=== PATIENT | male | born 1960 | race Caucasian/White ===

== ENCOUNTER 2018-12-01 09:36 | Outpatient (REF) | payer MEDICAID, SELFPAY ==
[2018-12-01 14:04] LABS: COMMENT (LAB VIEW ONLY) 50.91 mg/dL; Microalb ug/mg Crea 13.2 ug/mg Cr
[2018-12-01 18:49] LABS: HCT 46.4 % (40.0-50.0); Mean Corp. HGB Concentration 34.5 g/dL (32.0-36.0); Mean Corpuscular Hemoglobin 32.3 pg (27.0-33.0); Mean Corpuscular Volume 93.5 fL (80-95); Platelet Count 131 x1000/uL (130-400); RBC 4.96 m/cumm (4.50-6.00); RBC Distribution Width 13.6 % (11.8-14.1); White Blood Cell Count 8.42 k/cumm (4.4-10.8)
[2018-12-01 19:01] LABS: ALT 32 U/L (12-78); AST 24 U/L (15-37); Albumin 4.2 g/dL (3.4-5.0); Alkaline Phosphatase 60 U/L (46-116); Anion Gap 9.5 mmol/L (3-11); BUN 19 mg/dL (7-18); Bilirubin, Total 0.5 mg/dL (0.2-1.0); CO2 29.5 mmol/L (21.0-32.0); CREATININE 1.16 mg/dL (0.70-1.30); Calcium 9.5 mg/dL (8.5-10.1); Chloride 102 mmol/L (98-107); Cholesterol 112 mg/dL (50-200); Glucose 114 mg/dL (70-100); HDL Cholesterol 40 mg/dL (40-60); LDL CHOLESTEROL 56 mg/dL (<100); Potassium 4.1 mmol/L (3.5-5.1); Sodium 141 mmol/L (136-145); Triglyceride 85 mg/dL (30-150)
== END 2018-12-01 09:56 ==
LOC: NCHCN 09:36
PROVIDERS: PCP Family Medicine; Visit Provider Family Medicine
DX: E11.65 Type 2 diabetes mellitus with hyperglycemia (principal); E78.5 Hyperlipidemia, unspecified; F10.10 Alcohol abuse, uncomplicated
CPT/HCPCS: 80053; 80061; 83721; 85027; 82043; 82570

== ENCOUNTER 2019-04-10 00:31 | Outpatient (CLI) | payer MEDICAID, SELFPAY ==
--- NOTE | 2019-04-10 13:45 | DI.CTLCSR_ITS ---
SYMPTOM/DIAGNOSIS: CURRENT TOBACCO USE F17.200 CT CHEST: CT scan of the chest was performed according to the Lung Cancer screening protocol. The thoracic aorta is of normal caliber. Heart size is within normal limits. No significant pericardial effusion is seen. Coronary artery calcifications are present. No significant adenopathy is appreciated. No pleural effusion or pneumothorax is identified. No pulmonary nodules are seen. The tracheobronchial tree is unremarkable. No focal consolidating infiltrates are present. No acute osseous abnormality is identified. IMPRESSION: No pulmonary nodules. Category 1. Lung-RAD Category: Lung RADS Category 1- Negative
== END 2019-04-10 00:51 ==
PROVIDERS: PCP Family Medicine; Visit Provider Family Medicine
DX: Z12.2 Encounter for screening for malignant neoplasm of respiratory organs (principal); F17.200 Nicotine dependence, unspecified, uncomplicated
CPT/HCPCS: G0297

== ENCOUNTER 2019-12-21 00:33 | Outpatient (CLI) | payer MEDICAID, SELFPAY ==
--- NOTE | 2019-12-21 09:15 | DI.NM_ITS ---
APPROVED REPORT Exam: Exercise Treadmill Patient Location: Out-Patient Room/Bed: Stress Nurse: Graciela Blank RN BMI: 38.39 Baseline Rhythm: Sinus Rhythm Indications: Patient reports intermittent left sided chest pain (sharp to aching) and SOB every day f or the last ???couple of months???. Patient unsure if he has any family history of CAD. Medical History Cardiac Medications: Lipitor, Hydrochlorothiazide, Metoprolol Tartrate, Lisinopril, Aspirin. Allergies: Amoxicillin Cardiac Risk Factors: HTN, Hyperlipidemia, PVD, Diabetes (insulin), COPD Previous Cardiac Procedures: None Pretest Chest Pain Characteristics: Patient reports left sided ???hurts??? chest pain rated 1/10 this morning. Exercise History: Sedentary Physical Disabilities: None Lung Sounds: Clear to auscultation Heart Sounds: Regular Stress Test Details Test: Exercise stress testing was performed using a Bill protocol. Nuclear Acquisition: Rest Tc-99m/Stress Tc-99m 1 day Rest Isotope: Tc-99m Sestamibi. Dose: 12.3 Date: 12/21/2019 Injection Time: 0930 Stress Isotope: Tc-99m Sestamibi. Dose: 37.6 Date: 12/21/2019 Injection Time: 1105 HR Resting HR Supine: 75 bpm Max Heart Rate (APMHR): 161 bpm Resting HR Standin bpm Target HR (85% APMHR): 136 bpm Max HR Achieved: 141 bpm % of APMHR: 87 HR response to stress: Normal HR response to stress BP Resting BP Supine: 138/90 mmHg Resting BP Standin/88 mmHg Max BP: 162/92 mmHg BP response to stress: Abnormal hypertensive response to stress. ECG Resting ECG: Sinus Rhythm Comment: Q-waves inferiorly Stress ECG: Sinus Tachycardia ST Change: Normal Arrhythmia: None Recovery ECG: Sinus Rhythm Recovery ST Change: Normal Recovery Arrhythmia: None Clinical Reason for Termination: Dyspnea, Fatigue Stress Symptoms: Left sided (mid clavical under breast) chest pain (9/10) and pain of the thenar port ion of left hand (4/10) towards the end of exercise through approximately 6 minutes post exercise. Exercise duration: 7 min9 sec Highest Stage Reached: Stage 3: 3.4 mph at 14% grade. Exercise capacity: 8.81 METs Functional Capacity: Mildly deminished capacity Stress ECG Conclusion 1. Patient exercised for 7 minutes (9 METS). Rate-pressure product was 22,000. 2. The patient developed 9 out of 10 chest pain with exercise. 3. There were no ECG changes consistent with ischemia. Protocol Used: Bill Protocol Stress Test Summary STAGE Time (mins) Speed (mph) Grade (%) HR BP SYMPTOMS METS Supine 75 138/90 Standing 82 146/88 1 3 1.7 10 111 148/92 4.6 2 6 2.5 12 129 156/90 7 3 9 3.4 14 10.2 4 12 4.2 16 12.9 5 15 5.0 18 17.2 1 min recovery 135 162/92 3 min recovery 110 160/84 6 min recovery 103 152/78 9 min recovery 103 148/70 12 min recovery 100 150/68 MPI Conclusion Ejection fraction was 53% with stress. There were no wall motion abnormalities. There was no evidence of ischemia or infarction on the imaging portion of this exam. This represents a normal SPECT imaging test.
== END 2019-12-21 00:53 ==
PROVIDERS: PCP Family Medicine; Visit Provider Family Medicine
DX: R07.89 Other chest pain (principal); R06.02 Shortness of breath; R06.09 Other forms of dyspnea; I10 Essential (primary) hypertension; E78.5 Hyperlipidemia, unspecified
CPT/HCPCS: 78452; 93017

== ENCOUNTER 2019-12-27 17:09 | Outpatient (REF) | payer MEDICAID, SELFPAY ==
[2019-12-27 17:48] LABS: HCT 43.8 % (40.0-50.0); HGB 14.9 g/dL (13.5-17.5); Mean Corpuscular Hemoglobin 32.3 pg (27.0-33.0); Mean Platelet Volume 11.1 fL (8.0-11.0); Platelet Count 139 x1000/uL (130-400); RBC 4.61 m/cumm (4.50-6.00); RBC Distribution Width 13.3 % (11.8-14.1); White Blood Cell Count 6.44 k/cumm (4.4-10.8)
[2019-12-27 18:02] LABS: ALT 44 U/L (16-63); AST 20 U/L (15-37); Alkaline Phosphatase 68 U/L (46-116); Anion Gap 6.4 mmol/L (3-11); BUN 20 mg/dL (7-18); Bilirubin, Total 0.5 mg/dL (0.2-1.0); CO2 31.6 mmol/L (21.0-32.0); CREATININE 1.19 mg/dL (0.70-1.30); Calcium 9.1 mg/dL (8.5-10.1); Chloride 104 mmol/L (98-107); Glucose 116 mg/dL (74-106); Potassium 3.8 mmol/L (3.5-5.1); Sodium 142 mmol/L (136-145); Total Protein 6.8 g/dL (6.4-8.2)
[2019-12-27 18:53] LABS: COMMENT (LAB VIEW ONLY) 85.25 mg/dL
[2019-12-27 19:01] LABS: Hemoglobin A1C 6.9 % (3.8-5.6)
== END 2019-12-27 17:29 ==
LOC: NCHCN 17:09
PROVIDERS: PCP Family Medicine; Visit Provider Family Medicine
DX: I10 Essential (primary) hypertension (principal); R06.09 Other forms of dyspnea; R07.89 Other chest pain; E11.65 Type 2 diabetes mellitus with hyperglycemia
CPT/HCPCS: 80053; 85027; 82043; 82570; 83036

== ENCOUNTER 2020-06-12 18:26 | Outpatient (REF) | payer MEDICAID, SELFPAY ==
[2020-06-12 19:55] LABS: TSH (W/Ref FT4) 2.06 uIU/mL (0.36-3.74)
== END 2020-06-12 18:46 ==
LOC: NCHCN 18:26
PROVIDERS: PCP Family Medicine; Visit Provider Family Medicine
DX: I10 Essential (primary) hypertension (principal); E11.65 Type 2 diabetes mellitus with hyperglycemia; R63.5 Abnormal weight gain
CPT/HCPCS: 84443

== ENCOUNTER 2020-06-26 01:05 | Outpatient (CLI) | payer MEDICAID, SELFPAY ==
--- NOTE | 2020-06-26 07:34 | DI.US_ITS ---
APPROVED REPORT EXAM: Comprehensive 2D, Doppler, and color-flow Echocardiogram Patient Location: Out-Patient [employer] Specialist: Chelle Woodson RDCS (AE) Indications: WELLS, Leg pain Other Information Study Quality: Fair Conclusion Left Ventricle : The left ventricle is normal size. The left ventricular systolic function is normal. The left ventricular ejection fraction is within the normal range. There is normal left ventricular wall thickness. There is normal LV segmental wall motion. The left ventricular diastolic function is normal. LVEF is 50%. Right Ventricle : Right ventricle is grossly normal in size. Right ventricular systolic function is g rossly normal. Atria : The left atrium size is normal. The right atrium size is normal. Valves: There are no hemodynamically significant valvular lesions. Great Vessels : The aortic root is normal in size. The ascending aorta is normal in size. Aortic arch is normal in caliber. IVC is normal in size and collapses >50% with inspiration. Please see remainder of study for further details. Wall motion Left Ventricle The left ventricle is normal size. The left ventricular systolic function is normal. The left ventric ular ejection fraction is within the normal range. There is normal left ventricular wall thickness. T here is normal LV segmental wall motion. The left ventricular diastolic function is normal. There is no ventricular septal defect visualized. LVEF is 50%. Right Ventricle Right ventricle is grossly normal in size. Right ventricular systolic function is grossly normal. Atria The left atrium size is normal. The right atrium size is normal. The interatrial septum is intact wit h no evidence for an atrial septal defect. Aortic Valve The Aortic valve is sclerotic. Aortic valve is trileaflet. There is no aortic valvular stenosis. No a ortic regurgitation is present. Mitral Valve Mild mitral annular calcification. No evidence of mitral valve stenosis. Trace mitral regurgitation. Tricuspid Valve The tricuspid valve is normal in structure. There is no tricuspid valve stenosis. Trace tricuspid reg urgitation. Unable to assess PA pressure. Pulmonic Valve The pulmonary valve is normal in structure. There is no pulmonic valvular stenosis. Trace pulmonic re gurgitation. Great Vessels The aortic root is normal in size. The ascending aorta is normal in size. Aortic arch is normal in ca liber. IVC is normal in size and collapses >50% with inspiration. Pericardium There is no pericardial effusion. 2D Dimensions IVSD d PLAX 1.03 cm M: 0.6-1.2 LV Vol A2C d MOD 96.0 mL LVPW d PLAX 1.03 cm M: 0.6 - 1.2 LV Vol A4C d MOD 128.1 mL LVID d PLAX 4.41 cm M: 4.2 - 5.8 LA vol/ BSA A4C s A-L 18.0 mL/m2 LVDs 3.30 cm M: 2.5 - 4.0 LA Area A4C s MOD 15.57 cm2 Ao Root d 2.50 cm M: 3.1 - 3.7 LV EF A4C MOD 49.1 % RA Area A4C 11.05 cm2 LV EF A2C MOD 49.0 % RA Vol/ BSA A4C s A-L 11.4 mL/m2 LV EF Biplane MOD 49.0 % Ao Asc Diam d 3.34 cm M: 2.6 - 3.4 SV 54.60 mL LV EF Teichholz 49.5 % SV Index 23.27 mL/m2 LVEF (Chaves's) 49.05 % M: 52 - 72 LV Volume 79.38 mL M: 62 - 150 LV Volume Index 33.92 mL/m2 M: 34 - 74 LV Vol Biplane MOD 111.3 mL FS 24.85 % M-Mode TAPSE 2.46 cm (M/F) >1.7 LV Diastology MV E' medial 0.101 (>0.07 m/s) E/A Ratio 0.9 LV E/e MED 5.95 (<14) MV E Vmax 0.61 (0.4-1.3 m/s) MV E' lateral 0.110 (>0.1 m/s) MV A Vmax 0.65 (0.4-1.3 m/s) LV E/e LAT 5.50 (<14) MV E/A Ratio 0.87 MV E/E' medial 5.98 MV E/E' lateral 5.51 Aortic Valve LVOT Area 3.70 cm2 AoV Area Vmax 2.71 cm2 LVOT Vmax 0.79 m/s AoV Area/ BSA (Vmax) 1.15 cm2/m2 LVOT Mean Gary. 0.51 m/s CARMELA Mean Gary. 2.57 cm2 LVOT Peak Grad 2.5 mmHg CARMELA Mean Gary. Index 1.10 cm2/m2 LVOT Mean Grad 1.2 mmHg LVOT VTI 0.184 m LVOT Diam s 2.15 cm AoV Vmax 1.08 m/s Velocity Ratio 0.73 AoV Mean Gary. 0.74 m/s AoV Peak Grad 4.7 mmHg LVOT SV 67.97 mL AoV Mean Grad 2.5 mmHg AoV VTI 0.212 m AoV Area VTI 3.20 cm2 AoV Area/ BSA (VTI) 1.37 cm/m2 Mitral Valve MV DT 192 (160-240 msec) MV PHT 56 msec MV Area PHT 3.95 cm2 Pulmonary Valve PV Vmax 1.04 (0.5-1.5 m/s) RVOT Peak Gr. 1.86 mmHg PV Peak Grad 4.4 mmHg RVOT Mean Gr. 0.90 mmHg PV Mean Grad 2.2 mmHg RVOT VTI 0.156 m PV VTI 0.214 m RVOT Vmax 0.68 m/s
== END 2020-06-26 01:25 ==
PROVIDERS: PCP Family Medicine; Visit Provider Family Medicine
DX: R06.09 Other forms of dyspnea (principal); M79.604 Pain in right leg; M79.605 Pain in left leg
CPT/HCPCS: 93306

== ENCOUNTER 2020-07-08 07:26 | Outpatient (CLI) | payer MEDICAID, SELFPAY ==
[2020-07-09 21:04] LABS: COVID-19 RT-PCR Result NEGATIVE (Negative)
== END 2020-07-08 07:46 ==
PROVIDERS: PCP Family Medicine; Visit Provider Family Medicine
DX: Z01.818 Encounter for other preprocedural examination (principal); Z11.59 Encounter for screening for other viral diseases; J44.9 Chronic obstructive pulmonary disease, unspecified
CPT/HCPCS: U0003

== ENCOUNTER 2020-07-11 03:04 | Outpatient (CLI) | payer MEDICAID, SELFPAY ==
[2020-07-11] MEDS: Albuterol HFA 18 GM 200 PUFF INH IH (09:02)
[2020-07-11] MEDS: Inhaler, Assist Device 1 EACH MC (09:02)
--- NOTE | 2020-07-15 08:53 | W.PFT ---
Date of service: 07/11/20 Time of Service: 08:12 Pulmonary Function Test Result Interpretation Spirometry: Shows no evidence of obstructive airways disease, no bronchodilator response Lung Volumes: No evidence of restriction Diffusion Capacity: Mildly reduced, even when corrected to alveolar volume Airway Pressure: Normal Impression Isolated mild diffusion defect. This constellation of findings can be seen in early, developing interstitial lung disease and and pulmonary hypertension therefore clinical correlation recommended. When the study was compared to previous one from 10/05/2016 there is some decline in diffusion capacity, total lung capacity has increased by 160 cc but this is mostly due to increasing measures of hyperinflation and air trapping. FVC has declined by 320 cc, FEV1 has Increased by 100 cc Clinical Correlation therefore is recommended.
== END 2020-07-11 03:24 ==
PROVIDERS: PCP Family Medicine; Visit Provider Family Medicine
DX: R06.09 Other forms of dyspnea (principal); J44.9 Chronic obstructive pulmonary disease, unspecified; F17.210 Nicotine dependence, cigarettes, uncomplicated
CPT/HCPCS: 94060; 94726; 94729

== ENCOUNTER 2020-09-26 01:17 | Outpatient (CLI) | payer MEDICAID, SELFPAY ==
--- NOTE | 2020-09-26 | DI.CTLCSR_ITS ---
EXAM: CT CHEST LUNG CANCER SCREEN CLINICAL HISTORY: SCREENING FOR LUNG CA, CURRENT SMOKER, F17.200 TECHNIQUE: CT examination of the chest was performed utilizing low-dose lung cancer screening protoc ol. COMPARISON: CT CHEST - LUNG CANCER SCREENING from 12/27/[address] CHEST LUNG CANCER SCREEN from 04/10/2019 FINDINGS: Images obtained through the upper abdomen show unremarkable appearance of visualized portions of the liver and spleen. Incidental note is made of a low-attenuation 3 cm right renal mass, consistent wit h cyst, unchanged in size from examination of December 2017. There is no mediastinal or hilar adenopathy. Mediastinal vascular structures appear intact by noncon trast criteria. Note is made of coronary artery calcification. Tracheobronchial tree appears intact. No pleural effusion or pleural-based mass. The lungs are clear with no significant intrapulmonary nodule identified. IMPRESSION: Negative LDCT of the chest.Lung RADS Cat 1 - Negative: No nodules and definitely benign nodules Continue annual screening with LDCTin 12 months. RADIATION DOSE DELIVERED: LINK-TO-SR Total DLP 96.66mGy.cm Total DLP
--- NOTE | 2020-09-26 | DI.MRI_ITS ---
EXAM: MR LUMBAR SPINE WO CLINICAL HISTORY: CHRONIC LOW BACK PAIN,M54.5,BILAT LEG PAIN,M79.606,? SPINAL STENOSIS. TECHNIQUE: Multiplanar multisequence MRI was performed. COMPARISON: No exams were available for comparison FINDINGS: MR examination of the lumbosacral spine was performed according to the usual protocol. No significant bony signal abnormality seen. There are moderate hypertrophic facet degenerative gillette ges at L4-5 and L5-S1, mild facet degenerative changes noted throughout the remainder of the lumbar r egion. There are no significant findings T12-L1 vertebral level. Conus medullaris appears intact. At L1-2, there is a mild broad-based right paracentral disc herniation, there is mild narrowing of th e right lateral recess. Neural foramina appears well maintained. No definite neural impingement. At L2-3, there is no evidence of disc herniation, neural foraminal stenosis, or central canal spinal stenosis. There is mild narrowing of the AP diameter of the spinal canal. At L3-4, there is a broad-based left lateral disc herniation with narrowing of the left lateral reces s, left neural foramen appears fairly well maintained. There may be impingement left-sided nerve porter ts at this level including the L 4 left-sided nerve root. There is borderline central canal spinal s tenosis. At L4-5, there is a moderate disc bulge without disc herniation. There is borderline central canal sp inal stenosis. At L5-S1, there is no evidence of disc herniation. Neural foramina are well maintained. There is linda rderline central canal spinal stenosis. 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 Left lateral disc herniation at L3-4 with poss ible nerve root impingement. Please see above discussion for findings at individual levels. DATA REPOSITORY:
== END 2020-09-26 01:37 ==
PROVIDERS: PCP Family Medicine; Visit Provider Family Medicine
DX: F17.210 Nicotine dependence, cigarettes, uncomplicated (principal); M51.26 Other intervertebral disc displacement, lumbar region; M79.604 Pain in right leg; M79.605 Pain in left leg; G89.29 Other chronic pain; M54.5 Low back pain
CPT/HCPCS: 71271; 72148

== ENCOUNTER 2020-11-29 02:28 | Outpatient (CLI) | payer MEDICAID, SELFPAY ==
[2020-11-29 10:05] LABS: Source Nasal/Nares
[2020-11-29 15:02] LABS: COVID-19 PCR Negative (Negative)
== END 2020-11-29 02:29 | disposition home or self-care (01) ==
LOC: LBO 02:28
PROVIDERS: Surgery; PCP Family Medicine; Visit Provider Surgery
DX: Z20.822 Contact with and (suspected) exposure to COVID-19 (principal); Z01.818 Encounter for other preprocedural examination
CPT/HCPCS: 87635

== ENCOUNTER 2020-12-02 11:12 | Day surgery (SDC) | payer MEDICAID, SELFPAY ==
--- NOTE | 2020-12-02 07:04 | W.COLOREPORT ---
Date of service: 12/02/20 Time of Service: 12:18 Colonoscopy Report Date of procedure: 12/02/20 Pre-op diagnosis general: Colon Cancer Screening Post-op diagnosis procedure note: other (polyps) Procedure: Colonoscopy with polypectomy Surgeon: Juliet Hedrick Anesthesia Type: General:No Airway (ASA 2/ Ulices Christensen CRNA) Pathology: other (Transverse polyps x3) Complications: None Disposition: same day Indications: The patient is here for Colonoscopy pre-op. He has no family history of colon cancer. He has not had any bowel habit changes. -Discussed colonoscopy bowel prep as well as the procedure. Discussed possible complications of the procedure to include bleeding, pain, perforation, missed small lesion/polyp, sore throat, aspiration and adverse reaction to the medications. Questions were answered to patient?s satisfaction. No guarantees were implied or given Prep: Miralax/Dulcolax Procedure Start Time: 12:18 Procedure End Time: 12:42 Retraction Time: 18 minutes Findings: 3 small polyps removed Procedure Description: After informed consent was obtained the patient was taken to the procedure room and placed in a left decubitous position. Monitors were applied and a time out was done. The patients name, date of , procedure, allergies to medications and metal in their body was reviewed. The patient was then sedated. Once sedated and comfortable a rectal exam was done. External exam was normal. Internal exam revealed a normal sphincter tone and no palpable masses. The prostate felt smooth. The scope was then introduced and retro-flexed. No internal hemorrhoids, polyps or masses were identified on retro-flexion. The scope was then advanced to the cecum without difficulty. The ileocecal vlave and appendiceal orifice were identified. The prep was adequate. The scope was then slowly retracted over 18 minutes back into the rectum. Polyps were removed with cold forceps in the Transverse colon x3. There was no diverticulosis noted. The scope was removed and the patient was woken up and taken back to Same day surgery in stable condition. The patient tolerated the procedure well and there were no immediate complications. Follow up: The patient should follow up in 5 years unless they develop changes in bowel habits or other new gastrointestinal complaints.
--- NOTE | 2020-12-02 07:05 | W.PM.DSUDISC ---
Discharge Plan Disposition Patient Disposition: HOME Condition: Good Discharge Details Reason For Visit: Colonoscopy Attending Provider: Juliet Hedrick Primary Care Provider: Ruby Herron Home Meds and New Rx's Prescriptions: Continued Cosentyx (2 Syringes) 150 mg/mL syringe 300 mg subcut Q4W RF: 0 albuterol sulfate [Proventil HFA] 90 mcg/actuation HFA aerosol inhaler 2 puff inhalation Q6H PRNRF: 0 Spiriva with HandiHaler 18 mcg capsule, w/inhalation device 1 cap inhalation DAILY RF: 0 triamcinolone acetonide 0.1 % cream 1 applic topical DAILY RF: 0 betamethasone valerate 0.1 % cream 1 applic topical DAILY PRNRF: 0 aspirin [Adult Low Dose Aspirin] 81 mg tablet,delayed release (DR/EC) 81 mg PO DAILY RF: 0 atorvastatin [Lipitor] 40 mg tablet 40 mg PO DAILY RF: 0 hydrochlorothiazide 25 mg tablet 25 mg PO DAILY RF: 0 metoprolol tartrate 25 mg tablet 25 mg PO BID RF: 0 lisinopril 40 mg tablet 40 mg PO DAILY RF: 0 metformin 1,000 mg tablet 1,000 mg PO BID RF: 0 Victoza 3-Erik 0.6 mg/0.1 mL (18 mg/3 mL) pen injector 0.8 mg subcut HS RF: 0 Levemir U-100 Insulin 100 unit/mL solution 70 unit subcut QHS RF: 0 esomeprazole magnesium 40 mg capsule,delayed release(DR/EC) 40 mg PO DAILY RF: 0 sertraline 50 mg tablet 50 mg PO DAILY RF: 0 bupropion HCl 150 mg Tablet Extended Release 24 Hr 150 mg PO DAILY RF: 0 Discontinued polyethylene glycol 3350 17 gram/dose powder 238 g PO ONCE Qty: 238 RF: 0 bisacodyl [Dulcolax (bisacodyl)] 5 mg tablet,delayed release (DR/EC) 5 mg PO ONCE Qty: 4 RF: 0 Discharge Instructions Instructions: Colorectal Polyps (DC) Additional Instructions: Findings: polyps x3 Follow up: 5 years for your next colonoscopy Please call if you develop: fevers >101.5 Nausea or Vomiting Abdominal pain that is not transient DAY SURGERY UNIT POST ENDOSCOPY INSTRUCTIONS 1. Because there will be medication in your system for the next 24 hours, you may feel a little sleepy. Your coordination will be affected. Therefore: a. Do not drive or operate dangerous equipment for 24 hours. b. Do not drink alcohol beverages for 24 hours (not even beer). c. Plan to go home and rest for the day. 2. Generally there are no restrictions on your activity after a day or so has gone by, but you may feel a bit fatigued for a few days. 3 After you arrive home you may have a light meal and return to a normal diet as you can tolerate it without feeling sick to your stomach. 4. After surgery, you may feel pain or discomfort. This should be only transient, but if it persists please contact your doctor. 5. If there are any questions regarding the findings of your procedure, please feel free to contact your doctor. 6. If you are unable to contact your doctor with a problem, contact the hospital at [phone]. 7. Continue all your regular medications unless directed otherwise. I understand the above instructions and have no questions. Signature of Patient or Responsible Adult Escort Date/Time Name of Responsible Adult Escort Signature of Nurse Date/Time Activity:: Activity as Tolerated Diet:: As Tolerated Discharge Orders Discharge Orders: Discharge Order (Routine); Ordered 12/02/20 Ordered By: Juliet Hedrick
[2020-12-02 11:26] VITALS: BP 137/82; PULSE 79; RESP 18; TEMP 36.3; O2SAT 98
[2020-12-02] MEDS: Lactated Ringers 1,000 ML 80 ML IV (12:01)
--- NOTE | 2020-12-02 12:30 | BOWEL_PTH ---
PATIENT: Sharmila Zhang LOC: [facility] U#:[id number] AGE/SX: 60/M ROOM: RE12/02/[address]: Juliet Hedrick MD : [id number] BED: DIS: 12/02/2020 SPEC #: [id number] RECD: 12/02/20 17:23 STATUS: DONAVON REQ #: [id number] BRANDO: 12/02/20 12:[address]: Juliet Hedrick DEPT: Surgical Specimen RECD BY: Elvira Evans ENTERED: 12/02/20 17:23 SP TYPE: Bowel OTHR DR: Ruby Herron Tissues: 1 - BIOPSY BOWEL 2 - BIOPSY BOWEL Procedures: GROSS AND MICRO LEVEL 4 Comments: [id number]
[2020-12-02 13:15] VITALS: BP 114/74; PULSE 71; RESP 18; TEMP 36.5; O2SAT 96
== END 2020-12-02 13:37 | disposition home or self-care (01) ==
LOC: SUR 11:12
PROVIDERS: PCP Family Medicine; Visit Provider Surgery
PROC: 0DJD8ZZ Inspection of Lower Intestinal Tract, Via Natural or Artificial Opening Endoscopic (ICD-10-PCS; CPT 45378; principal; 2020-12-02 12:45)
DX: Z12.11 Encounter for screening for malignant neoplasm of colon (principal); D12.2 Benign neoplasm of ascending colon; K21.9 Gastro-esophageal reflux disease without esophagitis; I10 Essential (primary) hypertension; E11.9 Type 2 diabetes mellitus without complications; E78.5 Hyperlipidemia, unspecified; J44.9 Chronic obstructive pulmonary disease, unspecified
CPT/HCPCS: 45380; 88305; J2001; J2704

== ENCOUNTER 2020-12-05 22:52 | Outpatient (REF) | payer MEDICAID, SELFPAY ==
[2020-12-05 19:04] LABS: Folate 9.9 ng/mL (8.6-20.0); Vitamin B12 280 pg/mL (193-986)
[2020-12-09 15:50] LABS: Albumin 61.5 % (55.8-66.1); Total Protein 6.6 g/dL (6.3-8.2)
[2020-12-11 14:00] LABS: Methylmalonic Acid 0.17 nmol/mL (<=0.40)
== END 2020-12-05 22:53 | disposition home or self-care (01) ==
LOC: NCHCN 22:52
PROVIDERS: PCP Family Medicine; Visit Provider Family Medicine
DX: M79.671 Pain in right foot (principal); M79.672 Pain in left foot; Z13.89 Encounter for screening for other disorder
CPT/HCPCS: 80186; 82607; 82746; 84165

== ENCOUNTER 2021-09-15 15:49 | Outpatient (REF) | payer MEDICAID, SELFPAY ==
[2021-09-15 16:28] LABS: COMMENT (LAB VIEW ONLY) 83.45 mg/dL; Microalb ug/mg Crea 7.1 ug/mg Cr
== END 2021-09-15 15:50 | disposition home or self-care (01) ==
LOC: NCHCN 15:49
PROVIDERS: PCP Family Medicine; Visit Provider Family Medicine
DX: E11.9 Type 2 diabetes mellitus without complications (principal)
CPT/HCPCS: 82043; 82570

== ENCOUNTER 2022-02-16 12:26 | Outpatient (REF) | payer MEDICAID, SELFPAY ==
[2022-02-16 16:43] LABS: HCT 47.1 % (40.0-50.0); HGB 15.7 g/dL (13.5-17.5); MCH 32.2 pg (27.0-33.0); MCHC 33.3 % (32.0-36.0); MCV 97 fL (80-95); MPV 11.5 fL (8.0-11.0); Platelet Count 166 10^3/uL (130-400); RBC 4.87 10^6/uL (4.36-5.78); RDW 14.2 % (11.8-14.1); RDW-SD 51.1 fL; WBC 7.75 10^3/uL (4.4-10.8)
[2022-02-16 17:19] LABS: ALT 35 U/L (16-63); AST 25 U/L (15-37); Alkaline Phosphatase 61 U/L (46-116); BUN 17 mg/dL (7-18); Bilirubin, Total 0.5 mg/dL (0.2-1.0); CREATININE 1.1 mg/dL (0.70-1.30); Calcium 8.9 mg/dL (8.5-10.1); Chloride 103 mmol/L (98-107); Glucose 192 mg/dL (74-106); Sodium 142 mmol/L (136-145); TSH (W/Ref FT4) 1.41 uIU/mL (0.36-3.74); Total Protein 6.7 g/dL (6.4-8.2); Vitamin B12 263 pg/mL (193-986)
[2022-02-18 09:43] LABS: IgA 187 mg/dL (85-499); Interpretation (See Note); Tissue Transglutaminase IgA <1.2 U/mL (<4.0)
[2022-02-18 11:22] LABS: HIV-1/2 Ag & Ab Screen Negative (Negative)
== END 2022-02-16 12:27 | disposition home or self-care (01) ==
LOC: NCHCN 12:26
PROVIDERS: PCP Family Medicine; Visit Provider Family Medicine
DX: R63.4 Abnormal weight loss (principal); E11.9 Type 2 diabetes mellitus without complications; I10 Essential (primary) hypertension; E53.8 Deficiency of other specified B group vitamins; Z11.4 Encounter for screening for human immunodeficiency virus [HIV]
CPT/HCPCS: 80053; 82784; 83516; 85027; 87389; 82607; 84443

== ENCOUNTER → 2022-03-02 01:41 | Outpatient (CLI) | payer MEDICAID, SELFPAY ==
--- NOTE | 2022-03-02 09:15 | DI.CT_ITS ---
Exam(s) CT CHEST/ABD/PEL WO EXAM: CT CHEST/ABD/PEL WO CLINICAL HISTORY: RECENT WT LOSS, R63.4 TECHNIQUE: Imaging Protocol: Axial computed tomography images with coronal and sagittal reformatted images were created and reviewed COMPARISON: CT CHEST - LUNG CANCER SCREENING from 12/27/[address] CHEST LUNG CANCER SCREEN from 04/10/[address] CHEST LUNG CANCER SCREEN from 09/26/2020 FINDINGS: CHEST: Tracheobronchial tree: Patent where visualized. Pulmonary parenchyma: No consolidation or dominant measurable mass. Mild centrilobular emphysematous changes are present. Mediastinum and Jacquelin: No dominant adenopathy or fluid collection. The esophagus is unremarkable. Thyroid gland: Unremarkable. Pleura: No effusion or pneumothorax. Heart: The heart is not dilated. Moderate coronary artery calcification is present. No pericardial e ffusion. Aorta: Thoracic aorta non-dilated. Atherosclerosis is present. Lymph nodes: Within normal limits. Bones:Within normal limits for the patient's age. Soft tissues: Unremarkable. ABDOMEN: Liver: Normal density. No measurable mass. Gallbladder and Biliary Tract: No radiodense calculus or dilation. Pancreas: Normal density, no abnormal calcifications or inflammatory process. Spleen: Normal. Adrenals: There is a 0.9 cm round hypodense nodule on the left adrenal gland. This is stable. No fo llow-up is recommended. The right adrenal gland is unremarkable. Kidneys: Normal size, contour and axis. No radiodense stones or obstructive uropathy. There are stabl e bilateral renal cysts. No follow-up is recommended. Abdominal Aorta: Abdominal portion non-dilated. Atherosclerosis is present. Bowel: No obstruction or bowel wall thickening. No evidence of appendicitis. Peritoneal Cavity: No ascites, collection or mesenteric inflammatory response. No free air. Lymph Nodes: Within normal limits. Bones: Within normal limits for the patient's age. Soft Tissues: There are bilateral fat containing inguinal hernia, left greater than right. There is nonspecific skin thickening in the anterior abdominal wall. There is mild infiltration of the surrou nding fat. Cellulitis cannot be excluded. PELVIS: Bladder: There is diffuse thickening of the wall of the urinary bladder. Reproductive Organs: Prostatic calcifications are present. Lymph Nodes: Within normal limits. Bones: Within normal limits for the patient's age. IMPRESSION: 1. Diffuse thickening of the wall of the urinary bladder. Differential considerations include inflam matory/infectious cystitis, bladder outlet obstruction or neoplasm. Please correlate clinically. 2. Mild centrilobular emphysematous changes in the lungs. 3. Coronary artery disease and atherosclerosis. 4. Bilateral fat containing inguinal hernia, left greater than right. RADIATION DOSE DELIVERED: 692.72 mGy.cm Total DLP 692.72 mGy.cm Total DLP DATA REPOSITORY: All CT scans at this facility are submitted to the National Radiology Data Registry (NRDR) Dose Index Registry (DIR) with the [employer] (A[employer]). RADIATION OPTIMIZATION: All CT scans at this facility use at least one of these dose optimization te chniques: automated exposure control; mA and/or kV adjustment per patient size (includes targeted exa ms where dose is matched to clinical indication); or iterative reconstruction.
== END ==
PROVIDERS: PCP Family Medicine; Visit Provider Family Medicine
DX: R63.4 Abnormal weight loss (principal); J43.2 Centrilobular emphysema; D35.02 Benign neoplasm of left adrenal gland; K40.90 Unilateral inguinal hernia, without obstruction or gangrene, not specified as recurrent; N32.89 Other specified disorders of bladder
CPT/HCPCS: 71250; 74176

== ENCOUNTER 2022-03-11 01:52 | Outpatient (CLI) | payer MEDICAID, SELFPAY | END 2022-03-11 01:53 | disposition home or self-care (01) | LOC: LBO 01:52 | PROVIDERS: PCP Family Medicine; Visit Provider Surgery | DX: E11.65 Type 2 diabetes mellitus with hyperglycemia (principal) | CPT/HCPCS: 36415; 83036 ==

== ENCOUNTER 2022-05-19 18:20 | Outpatient (REF) | payer MEDICAID, SELFPAY ==
[2022-05-19 22:58] LABS: PSA, Screening 0.6 ng/mL (<=4.5)
== END 2022-05-19 18:21 | disposition home or self-care (01) ==
LOC: LBN 18:20
PROVIDERS: PCP Family Medicine; Visit Provider Nurse Practitioner Gerontology
DX: N40.1 Benign prostatic hyperplasia with lower urinary tract symptoms (principal); Z12.5 Encounter for screening for malignant neoplasm of prostate
CPT/HCPCS: 84153

== ENCOUNTER 2022-07-29 17:09 | Outpatient (REF) | payer MEDICAID, SELFPAY ==
[2022-07-29 16:43] LABS: COMMENT (LAB VIEW ONLY) 100.58 mg/dL
== END 2022-07-29 17:10 | disposition home or self-care (01) ==
LOC: NCHCN 17:09
PROVIDERS: PCP Family Medicine; Visit Provider Family Medicine
DX: E11.9 Type 2 diabetes mellitus without complications (principal)
CPT/HCPCS: 82043; 82570

== ENCOUNTER 2022-08-21 08:03 | Day surgery (SDC) | payer MEDICAID, SELFPAY ==
--- NOTE | 2022-08-20 20:42 | PDOC.DSDIS_ITS ---
Date of service: 08/21/22 Time of Service: 11:16 Discharge Plan Disposition Patient Disposition: Home Condition: Good Discharge Details Reason For Visit: Left inguinal hernia Attending Provider: Dusty Nixon Primary Care Provider: Ruby Herron Home Meds and New Rx's Prescriptions: New tramadol 100 mg tablet 100 mg PO BID PRNQty: 6 0RF Rx Instructions: take one tablet by mouth every 6 hours as needed for severe pain Continued Cosentyx (2 Syringes) 150 mg/mL syringe 300 mg subcut Q4W Rx Instructions: start 4 wks after last weekly dose;inject [id number] doses each in different thigh/upper arm/abdominal areas tamsulosin [Flomax] 0.4 mg capsule 0.4 mg PO DAILY Qty: 90 1RF albuterol sulfate [Proventil HFA] 90 mcg/actuation HFA aerosol inhaler 2 puff inhalation Q6H PRN Spiriva with HandiHaler 18 mcg capsule, w/inhalation device 1 cap inhalation DAILY Rx Instructions: puncture 1 cap using device; one dose = 2 inhalations triamcinolone acetonide 0.1 % cream 1 applic topical DAILY PRN betamethasone valerate 0.1 % cream 1 applic topical DAILY PRN aspirin [Adult Low Dose Aspirin] 81 mg tablet,delayed release (DR/EC) 81 mg PO DAILY atorvastatin [Lipitor] 40 mg tablet 40 mg PO DAILY hydrochlorothiazide 25 mg tablet 25 mg PO DAILY metoprolol tartrate 25 mg tablet 25 mg PO BID Label Comments: pt. thinks he took it this AM, 12/02/20 metformin 1,000 mg tablet 1,000 mg PO BID sertraline 50 mg tablet 50 mg PO DAILY Label Comments: pt. thinks he took it this AM, 12/02/20, pt. unsure if he is taking sertraline or buproprion Keralyt 3 % gel 1 applic topical DAILY mecobalamin (vitamin B12) 1,000 mcg tablet,chewable 1,000 mcg PO DAILY Levemir U-100 Insulin 100 unit/mL solution 20 unit subcut QHS lisinopril 40 mg tablet 40 mg PO DAILY bupropion HCl 150 mg Tablet Extended Release 24 Hr 150 mg PO DAILY Label Comments: pt. thinks he took it this AM, 12/02/20, 08/21/22, pt states he is unsure if he takes No Action ibuprofen 600 mg Tablet 600 mg PO TID Discharge Instructions Instructions: Inguinal Hernia (DC) Additional Instructions: 1. Resume all of your medications. 2. Okay to use tylenol and ibuprofen over the counter as needed. 3. Use [] as needed for pain. 4. Ice packs and heating pads for your comfort are fine to use. 5. Leave bandage in place for 24 hours, then remove. 6. Shower with warm soapy water. Pat dry. Use a bandaid if needed to protect your clothing. 7. No soaking or tub baths until I see you in the office. 8. No heavy lifting until I see you in the office. 9.Call the office (or go directly to the emergency room after hours) if you notice any of the following: Develop chills (warm to touch), or if you have a thermometer and your temperature is above 101 Difficulty breathing or difficultly swallowing Persistent vomiting Any bleeding ? exceeding one tablespoon 10. Call your physician if the site where your intravenous was started becomes red, swollen, painful, and warm to touch. Referrals: Dusty Nixon MD [ [facility] STAFF PHYSICIAN] - Activity:: no heavy lifting Remove Dressings/Wound Care:: 24 hours Shower/Bathe:: 24 hours Diet:: As Tolerated Discharge Orders Discharge Orders: Discharge Order (Routine); Ordered 08/20/22 Ordered By: Dusty Nixon DS: Diagnosis Discharge Diagnosis (1) Left inguinal hernia: Status: Acute Asessment and Plan: follow up in my office 1-2 weeks for routine post-op visit
--- NOTE | 2022-08-20 20:46 | ROE_ITS ---
Date of service: 08/21/22 Time of Service: 11:16 Operative Note Operative Note DATE OF PROCEDURE: 08/21/22 PRE-OP DIAGNOSIS: Left inguinal hernia POST-OP DIAGNOSIS: other (Direct left inguinal hernia) PROCEDURE: Open left inguinal herniorraphy SURGEON: Dusty Nixon PLATFORM MATERIAL HANDLING SUPERVISOR: Amanda Mitchell Refer to Anesthesia Record ESTIMATED BLOOD LOSS: 50 PATHOLOGY: none sent COMPLICATIONS: None Implants: Large mesh patch Indications: Jan is a 62-year-old male with a chief complaint of a left groin bulge that has become increasingly painful. Procedure Description: I began by confirming the correct site with the patient. Next the patient was induced with general anesthesia, and ultrasound-guided tap block was performed by their service. Surgical site was then prepped and draped in the usual fashion. I began by making an oblique incision over the left inguinal region. I dissected down through the skin to the deep fascia. Next, I incised the fascia along the length of the inguinal canal to the external ring. I then carefully identified the ilioinguinal nerve. Was fairly well involved in some adhesions, and I had concerned about postoperative pain. Therefore, I sharply divided it. Once this was complete, I bluntly dissected the shelving edge of the inguinal ligament down towards the pubic tubercle. Here, I encircled all cord structures with a [place] drain. Next, I began dissecting the specific cord structures. Great care was taken to spare the vas deferens and the blood supply to the testicle. Next, I isolated the hernia sac from the other inguinal structures. I reduced it back to its normal anatomic position. This was a direct inguinal hernia. Next, I buttressed the posterior floor of the inguinal canal with a large mesh patch. I started by fixing it to the pubic tubercle. Next, I used Prolene sutures to affix it to the shelving edge of the inguinal ligament and the conjoined tendon. Laterally I tacked it to the transversalis fascia and reconstructed an internal ring without any strain on the cord structures. Once this was complete, I irrigated the surgical field. It appeared hemostatic. I then closed the anterior portion of the fascia to reconstruct the front wall of the inguinal canal. I did this with interrupted Vicryl stitches. Once again, I irrigated the surgical field and inspected for hemostasis. Finally, I approximated the superficial fascia and the deep layers of the skin with absorbable suture. Skin was closed with absorbable sutures. Bandages were applied, the patient was awakened and transferred to the recovery unit.
[2022-08-21] VITALS (7 sets, daily range): BP systolic 99–129; BP diastolic 58–88; PULSE 52–66; RESP 16–18; TEMP 36.1–36.6; O2SAT 97–100; BMI 29.2
--- NOTE | 2022-08-21 07:53 | ANES.PREOP_ITS ---
General Info Date of Service Date Performed: 08/21/22 Height: 5 ft 8 in Weight: 87.09 kg Body Mass Index (BMI): 29.2 Surgical Procedure: Operation Date: 08/21/22 09:10 Proposed Procedure Side Surgeon p Herniorrhaphy Inguinal w/Mesh Left Dusty Nixon MD Meds Allergies and Home Medications Allergies Allergy/AdvReac Type Severity Reaction Status Date / Time ampicillin Allergy Severe rash Verified 08/21/22 08:24 amoxicillin Allergy Mild unknown Verified 08/21/22 08:24 some kind of cillin Allergy Uncoded 08/21/22 08:24 Home Medication Medication Instructions Recorded albuterol sulfate 90 mcg/actuation 2 puff inhalation Q6H PRN 10/10/20 aerosol inhaler (Proventil HFA) aspirin 81 mg tablet,delayed 81 mg PO DAILY 10/10/20 release (Adult Low Dose Aspirin) atorvastatin 40 mg tablet (Lipitor) 40 mg PO DAILY 10/10/20 betamethasone valerate 0.1 % 1 applic topical DAILY PRN 10/10/20 topical cream hydrochlorothiazide 25 mg tablet 25 mg PO DAILY 10/10/20 metformin 1,000 mg tablet 1,000 mg PO BID 10/10/20 metoprolol tartrate 25 mg tablet 25 mg PO BID 10/10/20 tiotropium bromide 18 mcg capsule 1 cap inhalation DAILY 10/10/20 with inhalation device (Spiriva with HandiHaler) triamcinolone acetonide 0.1 % 1 applic topical DAILY PRN 10/10/20 topical cream secukinumab 150 mg/mL subcutaneous 300 mg subcut Q4W 11/22/20 syringe (Cosentyx 300 mg/2 Syringes () sertraline 50 mg tablet 50 mg PO DAILY 11/22/20 bupropion HCl 150 mg 24 hr tablet, 150 mg PO DAILY 11/28/20 extended release salicylic acid 3 % topical gel 1 applic topical DAILY 02/23/22 (Keralyt) insulin detemir U-100 100 unit/mL 20 unit subcut QHS 03/04/22 subcutaneous solution (Levemir U-100 Insulin) mecobalamin (vitamin B12) 1,000 1,000 mcg PO DAILY 03/04/22 mcg chewable tablet tamsulosin 0.4 mg capsule (Flomax) 0.4 mg PO DAILY #90 caps 05/19/22 lisinopril 40 mg tablet 40 mg PO DAILY 08/05/22 ibuprofen 600 mg tablet 600 mg PO TID 08/21/22 Current Visit Medications: Current Medications Generic Name Dose Route Start Last Admin Trade Name Maurizio PRN Reason Stop Dose Admin Acetaminophen 1,000 mg 08/21/22 06:00 Acetaminophen 500 Mg Tab PO 08/21/22 23:59 PREOP YOANDY Gabapentin 600 mg 08/21/22 06:00 Gabapentin 300 Mg Cap PO 08/21/22 23:59 PREOP YOANDY Ringer's Solution 1,000 mls @ 80 mls/hr 08/21/22 06:00 IV 08/21/22 23:59 INFUSION YOANDY Cefazolin Sodium/Dextrose 2 gm in 50 mls @ 100 mls/hr 08/21/22 06:00 Ancef Duplex IVPB 08/21/22 23:59 PREOP [facility] Ondansetron HCl 8 mg/ Sodium 54 mls @ 200 mls/hr 08/20/22 20:48 Chloride IVPB Q6H PRN PRN IV Miscellaneous Supplies 1 each 08/21/22 06:00 Iv Access IV 08/21/22 23:59 DIRECTED [facility] Morphine Sulfate 4 mg 08/20/22 20:48 Morphine 4 Mg/Ml Syr IVP Q1H PRN PRN Sodium Chloride 0 ml 08/21/22 06:00 Normal Saline Flush 10 Ml Syr IV 08/21/22 23:59 PRN PRN Sodium Chloride 0 ml 08/21/22 06:00 Normal Saline 10 Ml Vial IJ 08/21/22 23:59 DIRECTED PRN Sterile Water 0 ml 08/21/22 06:00 Water,Injection,Sterile 10 Ml Vial IJ 08/21/22 23:59 DIRECTED PRN Tramadol HCl 100 mg 08/20/22 20:48 Tramadol 50 Mg Tab PO Q6H PRN PRN Pain PFSH Active Problems Active Problems: Problem Status Onset Code BPH loc w urin obs/LUTS N40.1 Excessive and redundant skin and subcutaneous tissue L98.7 Chronic diarrhea K52.9 Poorly controlled type 2 diabetes mellitus with autonomic neuropathy E11.43, E11.65 Left inguinal hernia K40.90 Dyspnea on exertion R06.00 Type 2 diabetes mellitus E11.9 Stage 1 mild COPD by GOLD classification J44.9 Tobacco abuse Z72.0 Alcohol abuse, episodic F10.10 Medical History Medical History B12 deficiency Depression GERD (gastroesophageal reflux disease) Hx of chronic arthritis back Hx of emphysema Hx of fracture of finger Left hand Hx of psoriasis Hyperlipidemia Hyperplastic colon polyp Hypertension Left hydrocele Osteoarthritis Psoriasis Stasis dermatitis Tubular adenoma of colon Venous insufficiency Weight loss Surgical History Surgical History History of arthroscopic surgery of elbow Hx of vein stripping left leg Tobacco Smoking/Tobacco Use Status: Current-Occasional Tobacco Type: cigarettes Smoking packs per day: 0.5 Smoking cigarettes per day: 10.0 Alcohol Alcohol Intake: former Year quit: 2019 Substance Use Substance use type: does not use Details: pt. reports smoking 1/2 pack of cigarettes over couple months Vital Signs and Lab Results Lab Results Blood Type / Crossmatch: No Data to Display Complete Blood Count: No Data to Display Complete Metabolic Panel: No Data to Display Liver Function Panel: No Data to Display Coagulation Panel: No Data to Display Cardiac Panel: No Data to Display Arterial Blood Gas: No Data to Display Venous Blood Gas: No Data to Display Pancreas Panel: No Data to Display Thyroid Panel: No Data to Display Infectious Disease: No Data to Display Blood Cultures: No Data to Display Toxicology Panel: No Data to Display Imaging and Studies Imaging and Studies Study information below may be from another EMR and interpreted by another provider. Please see original notes in EMR for more complete details. Stress Test Summary: Patient Name: SONIA FAGAN #: [id number]: ESTHELA Ordering Provider: Rocio Kan M.D. : ZAC Myles Primary Care Provider: Rocio Kan M.D.Date of Exam: 12/21/19ex: M Admission Date: 12/21/19 : 1960 Age: 59 Exam(s) a NM:NM MPI rest & stress grp APPROVED REPORT Exam: Exercise Treadmill Patient Location: Out-Patient Room/Bed: Stress Nurse: Graciela Blank RN BMI: 38.39 Baseline Rhythm: Sinus Rhythm Indications: Patient reports intermittent left sided chest pain (sharp to aching) and SOB every day for the last ???couple of months???. Patient unsure if he has any family history of CAD. Medical History Cardiac Medications: Lipitor, Hydrochlorothiazide, Metoprolol Tartrate, Lisinopril, Aspirin. Allergies: Amoxicillin Cardiac Risk Factors: HTN, Hyperlipidemia, PVD, Diabetes (insulin), COPD Previous Cardiac Procedures: None Pretest Chest Pain Characteristics: Patient reports left sided ???hurts??? chest pain rated 1/10 this morning. Exercise History: Sedentary Physical Disabilities: None Lung Sounds: Clear to auscultation Heart Sounds: Regular Stress Test Details Test: Exercise stress testing was performed using a Bill protocol. Nuclear Acquisition: Rest Tc-99m/Stress Tc-99m 1 day Rest Isotope: Tc-99m Sestamibi. Dose: 12.3 Date: 12/21/2019 Injection Time: 0930 Stress Isotope: Tc-99m Sestamibi. Dose: 37.6 Date: 12/21/2019 Injection Time: 1105 HR Resting HR Supine: 75 bpmMax Heart Rate (APMHR): 161 bpm Resting HR Standin bpmTarget HR (85% APMHR): 136 bpm Max HR Achieved: 141 bpm % of APMHR: 87 HR response to stress: Normal HR response to stress BP Resting BP Supine: 138/90 mmHg Resting BP Standin/88 mmHg Max BP: 162/92 mmHg BP response to stress: Abnormal hypertensive response to stress. ECG Resting ECG: Sinus Rhythm Comment: Q-waves inferiorly Stress ECG: Sinus Tachycardia ST Change: Normal Arrhythmia: None Recovery ECG: Sinus Rhythm Recovery ST Change: Normal Recovery Arrhythmia: None Clinical Reason for Termination: Dyspnea, Fatigue Stress Symptoms: Left sided (mid clavical under breast) chest pain (9/10) and pain of the thenar portion of left hand (4/10) towards the end of exercise through approximately 6 minutes post exercise. Exercise duration: 7 min9 sec Highest Stage Reached: Stage 3: 3.4 mph at 14% grade. Exercise capacity: 8.81 METs Functional Capacity: Mildly deminished capacity Stress ECG Conclusion 1. Patient exercised for 7 minutes (9 METS). Rate-pressure product was 22,000. 2. The patient developed 9 out of 10 chest pain with exercise. 3. There were no ECG changes consistent with ischemia. Protocol Used: Bill Protocol Stress Test Summary STAGETime (mins)Speed (mph)Grade (%)[id number] [id number]/90 Spmapfrw21306/88 [id number] [id number] [id number] 1 min [id number]/92 3 min [id number]/84 6 min [id number]/78 9 min [id number]/70 12 min [id number]/68 MPI Conclusion Ejection fraction was 53% with stress. There were no wall motion abnormalities. There was no evidence of ischemia or infarction on the imaging portion of this exam. This represents a normal SPECT imaging test. Echocardiogram Summary: Patient Name: SONIA FAGAN #: [id number]: ESTHELA Ordering Provider: Rocio Kan M.D. : ZAC I Primary Care Provider: Rocio Kan M.D.Date of Exam: 06/26/20ex: Admission Date: 06/26/20 : 1960 Age: 60 Exam(s) a US:US echocardiogram APPROVED REPORT EXAM: Comprehensive 2D, Doppler, and color-flow Echocardiogram Patient Location: Out-Patient Clinical Specialist Vascular: Chelle Woodson RDCS (AE) Indications: WELLS, Leg pain Other Information Study Quality: Fair Conclusion Left Ventricle : The left ventricle is normal size. The left ventricular systolic function is normal. The left ventricular ejection fraction is within the normal range. There is normal left ventricular wall thickness. There is normal LV segmental wall motion. The left ventricular diastolic function is normal. LVEF is 50%. Right Ventricle : Right ventricle is grossly normal in size. Right ventricular systolic function is grossly normal. Atria : The left atrium size is normal. The right atrium size is normal. Valves: There are no hemodynamically significant valvular lesions. Great Vessels : The aortic root is normal in size. The ascending aorta is normal in size. Aortic arch is normal in caliber. IVC is normal in size and collapses >50% with inspiration. Please see remainder of study for further details. Pulmonary Function Summary: Pulmonary Function Test PATIENT NAME: SONIA FAGAN #: [id number] ADMITTING PROVIDER: Deborah Dela Cruz M.D. PRIMARY CARE PROVIDER:ROCIO KAN MD DATE OF ADMIT: 07/11/20 : 1960 Date of service: 07/11/20 Time of Service: 08:12 Pulmonary Function Test Result Interpretation Spirometry: Shows no evidence of obstructive airways disease, no bronchodilator response Lung Volumes: No evidence of restriction Diffusion Capacity: Mildly reduced, even when corrected to alveolar volume Airway Pressure: Normal Impression Isolated mild diffusion defect. This constellation of findings can be seen in early, developing interstitial lung disease and and pulmonary hypertension therefore clinical correlation recommended. When the study was compared to previous one from 10/05/2016 there is some decline in diffusion capacity, total lung capacity has increased by 160 cc but this is mostly due to increasing measures of hyperinflation and air trapping. FVC has declined by 320 cc, FEV1 has Increased by 100 cc Clinical Correlation therefore is recommended. Anesthesia Assessment and Plan Anesthesia History Personal History: No History of Anesthesia Complications Family History: Family History Unknown Exercise Tolerance Exercise Tolerance: Metabolic Equivalents>4 Pertinent Negatives Pertinent Negatives: No Symptoms of GERD, No Major Cardiovascular Symptoms or Complaints, No Major Pulmonary Symptoms or Complaints and No History of CVA/TIA Cardiac & Pulmonary Exam Cardiac Exam: Normal S1/S2 Heart Sounds Pulmonary Exam: Clear Bilateral Breath Sounds Implantable Cardiac Device Does patient have a Pacemaker or an ICD?: No Airway Exam Known Difficult Airway: No Mallampati Class: 2 Mouth Opening: Normal (> 3cm) Thyromental Distance: Greater than 3 cm Neck Range of Motion: Full ROM Neck Circumference: Normal Teeth Condition: Normal Dentition ASA Classification ASA Score: ASA 3 Emergency Case?: No NPO Status NPO Status: NPO Clears >2 hours, Solids >8 hours Anesthesia Plan Resuscitation Status: Full Code Anesthesia Technique: General Anesthesia Airway Planned: LMA Monitors Used: Standard Monitors
[2022-08-21] MEDS: Acetaminophen 500 MG TAB 1000 MG PO (08:42)
[2022-08-21] MEDS: Gabapentin 300 MG CAP 600 MG PO (08:43)
[2022-08-21] MEDS: Lactated Ringers 1,000 ML 80 ML IV (08:50)
[2022-08-21] MEDS: ceFAZolin 2 GM/50 ML BAG IVPB (09:24)
[2022-08-21] MEDS: Bupivacaine 0.5% Pres-Free W/EPI 30 ML VIAL (09:59)
--- NOTE | 2022-08-21 12:26 | W.ANESPOSTOP ---
Postoperative Evaluation Date, Time and Location Date Performed: 08/21/22 Time Performed: 12:26 Patient Location: Day Surgery Unit Vital Signs Most Recent Imported Vital Signs: Most Recent Vital Signs Temp Pulse Resp BP Pulse Ox 36.4 C L 60 16 121/62 97 08/21/22 11:30 08/21/22 11:30 08/21/22 11:30 08/21/22 11:30 08/21/22 11:30 Pain Score Most Recent Pain Score: Most Recent Pain Score Pain Level 0 08/21/22 11:30 Assessment Mental Status: Awake (Alert & Oriented to Patient Baseline) Airway and Respiratory Function: Patent airway with normal (patient baseline) respiratory exam Cardiovascular Function: Hemodynamically Stable Hydration Status: Adequately Hydrated Nausea & Vomiting: No Nausea or Vomiting Pain: Pt. Denies Any Pain Peripheral Nerve Block: Regional nerve block not resolved at time of post operative discharge Postoperative Comments:: Seen earlier today and doing well
--- NOTE | 2022-08-24 14:28 | W.ANESNERVE ---
Nerve Block Single Injection Procedure Date and Time Date Performed: 08/24/22 Procedure Start: 09:34 Location Where Procedure Performed Procedure Location: Operating Room Procedure Stop: 09:44 Reason Performed: Postoperative Analgesia Requesting Provider: Dusty Nixon Timeout Performed Timeout Performed: Yes Monitoring Used ECG, Blood Pressure, SpO2 and ETCO2 Sterility Sterility: Hand Hygiene, Surgical Cap, Surgical Mask, Sterile Gloves and Chlorhexidine Sedation Given During Procedure Sedation Given (Indicate Dose Given): No Sedation given Patient Mental Status Patient Mental Status: Performed under general anesthesia Nerve Block 1st Nerve Block: Laterality: Left Block Type: TAP Unilateral Needle / Catheter Used: 100mm SonoPlex II Local Anesthetic Bolus (Indicate Dose Given): None, Injected in 3-5ml increments after negative blood aspiration and Bupivacaine 0.25% Dose:: 30 ml Additives (Indicate Dose Given): None Ultrasound: Sterile probe cover and gel used Ultrasound Image Saved?: Yes Nerve Stimulator: Not Used Paresthesia: None Procedure Tolerated: No Complications and Patient tolerated well Procedure Outcome: Successful Performed By: Mickey Black
== END 2022-08-21 12:58 | disposition home or self-care (01) ==
PROVIDERS: PCP Family Medicine; Visit Provider Surgery
PROC: (CPT 49505; principal; 2022-08-21 09:00)
DX: K40.90 Unilateral inguinal hernia, without obstruction or gangrene, not specified as recurrent (principal); J44.9 Chronic obstructive pulmonary disease, unspecified; E11.9 Type 2 diabetes mellitus without complications; Z79.4 Long term (current) use of insulin; Z79.84 Long term (current) use of oral hypoglycemic drugs
CPT/HCPCS: 49505; 76942; C1781; J0690; J1100; J2405

== ENCOUNTER 2022-09-25 14:41 | Outpatient (CLI) | payer MEDICAID, SELFPAY ==
--- NOTE | 2022-09-25 14:30 | DI.CT_ITS ---
Exam(s) CT ABDOMEN PELVIS W EXAM: CT ABDOMEN PELVIS W CLINICAL HISTORY: acute rupture of inguinal hernia reapir K40.31 TECHNIQUE: Imaging Protocol: Axial computed tomography images with coronal and sagittal reformatted images were created and reviewed CONTRAST MATERIAL: Intravenous: Omnipaque 350 Contrast volume:100 mL Oral: No COMPARISON: CT CT CHEST/ABD/PEL WO from 03/02/2022 FINDINGS: ABDOMEN: Lung Bases: Normal where visualized. Liver: Normal density. No measurable mass. Portal, Superior Mesenteric, and Splenic Veins: Unremarkable. Gallbladder and Biliary Tract: No radiodense calculus or dilation. Pancreas: Normal density, no abnormal calcifications or inflammatory process. Spleen: Normal. Adrenals: There is stable nodularity of the left adrenal gland. The right adrenal gland is unremarka ble. Kidneys: Normal size, contour and axis. No radiodense stones or obstructive uropathy. There again see n bilateral simple renal cysts. No follow-up is recommended. Abdominal Aorta: Abdominal portion non-dilated. Atherosclerosis is present. Bowel: No obstruction or bowel wall thickening. Appendix is unremarkable. The stomach is distended wi th fluid. No evidence of obstruction. Peritoneal Cavity: No ascites, collection or mesenteric inflammatory response. No free air. Lymph Nodes: Within normal limits. Bones: Within normal limits for the patient's age. Soft Tissues: There is a 6.6 transverse by 5.2 AP by 5.8 craniocaudad cm fluid collection in the just superior to the left inguinal region. It lies in the subcutaneous tissues. There does not appear t o be communication with the abdominal cavity. And there is no communication seen with the iliac or f emoral vessels. This corresponds to the palpable abnormality. PELVIS: Bladder: Symmetric distention, no gross wall thickening. Reproductive Organs: Unremarkable as visualized. Lymph Nodes: Within normal limits. Bones: Within normal limits for the patient's age. IMPRESSION: 1. 6.6 x 5.2 x 5.8 cm subcutaneous fluid collection near the left inguinal region. Given the patient 's right recent surgery this may represent a hematoma. Abscess is considered less likely. There is no communication seen with the adjacent iliac or femoral vessels. 2. No evidence of an inguinal hernia. 3. Examination was discussed with Dr. Giron on 09/25/2022 at 5 p.m.. RADIATION DOSE DELIVERED: 812.63mGy.cm Total DLP DATA REPOSITORY: All CT scans at this facility are submitted to the National Radiology Data Registry (NRDR) Dose Index Registry (DIR) with the [employer] (A[employer]). RADIATION OPTIMIZATION: All CT scans at this facility use at least one of these dose optimization te chniques: automated exposure control; mA and/or kV adjustment per patient size (includes targeted exa ms where dose is matched to clinical indication); or iterative reconstruction.
[2022-09-25 15:28] LABS: Anion Gap 4.5 mmol/L (3-11); BUN 25 mg/dL (7-18); CO2 32.5 mmol/L (21.0-32.0); CREATININE 1.3 mg/dL (0.70-1.30); Calcium 9.4 mg/dL (8.5-10.1); Chloride 103 mmol/L (98-107); Estimated GFR 62.11 (mL/min/1.73m2); Glucose 238 mg/dL (74-106); Potassium 4.1 mmol/L (3.5-5.1); Sodium 140 mmol/L (136-145)
[2022-09-25] MEDS: Omnipaque 350 MG/ML 100 ML BTL IJ (16:41)
[2022-09-25] MEDS: Normal Saline - Diluent 50 ML VIAL IJ (16:42)
[2022-09-25] MEDS: Normal Saline Flush 10 ML SYR IVP (16:42)
[2022-09-25] MEDS: Breeza Beverage 473 ML BTL PO (16:43)
[2022-09-25] MEDS: Gastrografin 120 ML BTL PO (16:56)
== END 2022-09-25 15:01 ==
LOC: DI 14:41
PROVIDERS: PCP Family Medicine; Visit Provider Surgery
DX: K40.31 Unilateral inguinal hernia, with obstruction, without gangrene, recurrent (principal)
CPT/HCPCS: 36415; 80048; 74177; J3490

== ENCOUNTER 2022-10-21 18:14 | Emergency (ER) | payer MEDICAID, SELFPAY ==
[2022-10-21 18:24] VITALS: BP 157/89; PULSE 97; RESP 18; TEMP 36.8; O2SAT 99
--- NOTE | 2022-10-21 19:00 | DI.CT_ITS ---
Exam(s) CT CHEST/ABD/PEL W EXAM: CT CHEST/ABD/PEL W CLINICAL HISTORY: fall 8 feet. TECHNIQUE: Imaging Protocol: Axial computed tomography images with coronal and sagittal reformatted images were created and reviewed CONTRAST MATERIAL: Intravenous: Omnipaque 350 Contrast volume:100 ml Oral: None COMPARISON: CT CT ABDOMEN PELVIS W from 09/25/2022 FINDINGS: CHEST: LUNGS: No infiltrates nor lung contusion. No pleural effusions. No pneumothorax. No ominous lung n odules. No significant focal findings in the trachea and mainstem bronchi.. MEDIASTINUM: No evidence of sternal fracture nor mediastinal hematoma. Visualized thyroid unremarkab le. No incidental hilar nor mediastinal adenopathy. No axillary adenopathy. CARDIAC: Heart size is normal. There is no pericardial effusion.Thoracic aorta appears unremarkable. OSSEOUS: No rib fractures identified. However, there fractures of the left transverse process is of L1, L2, nondisplaced.. ABDOMEN: There is no ascites. No evidence of bowel wall nor mesenteric hematoma. LIVER: No evidence of hepatic laceration or subcapsular hematoma. No incidental findings in the live r. GALLBLADDER/BILIARY: No obvious gallbladder pathology. CBD is not dilated. PANCREAS: No evidence of pancreatic mass nor dilatation of the pancreatic duct. SPLEEN: No splenic laceration evident. Small solitary calcified granuloma noted in the spleen. Sple olga and portal veins are patent. ADRENALS: Right adrenal gland unremarkable. Nodular density is noted in the left adrenal gland again noted. KIDNEYS: No renal laceration or subcapsular hematoma. Benign cyst in the medial cortex of the left k idney noted which measures 2 cm. Exophytic benign cyst off the lateral cortex of the right kidney no georgie, measuring 4 x 3.5 cm.. No solid renal masses nor intrarenal calculi. Dilatation of the upper r ight collecting system above the UPJ is again noted, unchanged. No obvious calculus seen in the righ t ureter below this level and the right ureter below the UPJ is not dilated. The urinary bladder is somewhat distended but otherwise unremarkable. ABDOMINAL AORTA: Calcified but otherwise intact. No incidental aneurysm evident. Common iliac arter ies are also calcified but otherwise intact. LYMPH NODES: There is no retroperitoneal nor paraaortic adenopathy. ABDOMINAL WALL: Again noted is a large fluid collection in the left groin region which is similar in size to the recent CT scan of 09/25/2022. Does not contain gas bubbles but still may represent absce ss or seroma as there has apparently been prior surgery in this region. GI: There is no evidence of bowel obstruction.No evidence of bowel wall hematoma. PELVIS: LYMPH NODES: There is no intrapelvic nor inguinal adenopathy. GI: No evidence of appendicitis.No evidence of sigmoid diverticulitis. URINARY BLADDER: Moderately distended but no mass nor radiopaque calculi noted. REPRODUCTIVE: Prostate gland calcified. Slightly prominent and lobulated. OSSEOUS: There are no compression fractures but there are nondisplaced adjacent fractures of the left transverse process is of L1 and L2. No other fractures identified. IMPRESSION: 1. There are acute appearing fractures of the left transverse processes of L1 and L2 vertebral bodies . No other fractures identified. No prominent hematomas in this region. No ascites. 2. Large left groin fluid collection again noted, similar to 09/25/2022. There has apparently been r ecent surgery in this region. This either represents abscess or seroma. 3. Left adrenal nodule again noted. 4. Mildly distended urinary bladder. Also dilatation of the upper right collecting system above the UPJ, similar to previous. There is no obvious radiopaque calculus in the right ureter and the right ureter below the UPJ is not dilated. First read by [facility]. Final report called by myself to the emergency room physician 10/22/2022 8:45 a.m.. RADIATION DOSE DELIVERED: 1430.43 mGy.cm Total DLP DATA REPOSITORY: All CT scans at this facility are submitted to the National Radiology Data Registry (NRDR) Dose Index Registry (DIR) with the [employer] ([employer]). RADIATION OPTIMIZATION: All CT scans at this facility use at least one of these dose optimization te chniques: automated exposure control; mA and/or kV adjustment per patient size (includes targeted exa ms where dose is matched to clinical indication); or iterative reconstruction.
--- NOTE | 2022-10-21 19:00 | DI.CT_ITS ---
Exam(s) CT HEAD CERVICAL SPINE WO EXAM: CT HEAD CERVICAL SPINE WO CLINICAL HISTORY: fall 8 feet. TECHNIQUE: Imaging Protocol: Axial computed tomography images with coronal and sagittal reformatted images were created and reviewed COMPARISON: No exams were available for comparison FINDINGS: BRAIN: There are no skull fractures nor fluid in the visualized paranasal sinuses. There is no evidence of intracranial hemorrhage, mass effect, or shift of midline structures. There are no extra-axial fluid collections. The ventricles are not enlarged or shifted and there is no blo od within the ventricular system nor within the basal cisterns. CERVICAL SPINE: There is no evidence of fracture nor listhesis. No significant prevertebral soft tissue swelling. Disc spaces are relatively well maintained. There is no significant facet joint malalignment. No significant osseous lesions evident. IMPRESSION: No acute intracranial findings on this noninfused CT scan of the brain. No evidence of cervical spine fracture, malalignment, nor acute compromise of the cervical spinal can al. RADIATION DOSE DELIVERED: 1,578.97mGy.cm Total DLP DATA REPOSITORY: All CT scans at this facility are submitted to the National Radiology Data Registry (NRDR) Dose Index Registry (DIR) with the [employer] ([employer]). RADIATION OPTIMIZATION: All CT scans at this facility use at least one of these dose optimization te chniques: automated exposure control; mA and/or kV adjustment per patient size (includes targeted exa ms where dose is matched to clinical indication); or iterative reconstruction.
--- NOTE | 2022-10-21 19:02 | DI.CT_ITS ---
Exam(s) CT THORACIC LUMBAR SPINE REC EXAM: CT THORACIC LUMBAR SPINE REC CLINICAL HISTORY: fall 8 feet, recon TECHNIQUE: COMPARISON: CT CT CHEST/ABD/PEL W from 10/21/2022 FINDINGS: THORACIC SPINAL COLUMN: No fractures nor listhesis. No facet malalignment. No acute compromise of t he thoracic spinal canal. Multilevel osteophytes noted bilaterally. LUMBOSACRAL SPINAL COLUMN: No fracture nor listhesis. Multilevel moderate disc space narrowing in th e mid-upper lumbar spine. No facet malalignment. No sacral fracture seen. IMPRESSION: No evidence of acute fractures in the thoracic and lumbar spinal columns.
--- NOTE | 2022-10-21 19:02 | DI.RAD_ITS ---
Exam(s) XR TIB/FIB RT EXAM: XR TIB/FIB RT CLINICAL HISTORY: fall/pain. TECHNIQUE: 2D digital imaging was performed. COMPARISON: No exams were available for comparison FINDINGS: 3 views No evidence of acute fracture in the tibia and fibula although please note that at the level of the a nkle medial malleolus is not included in the field of view here. IMPRESSION: No obvious fractures. Medial malleolus not included in the field of view. Clinically indicated zachariah mmend dedicated ankle images. DATA REPOSITORY: RADIATION DOSE DELIVERED:
--- NOTE | 2022-10-21 19:30 | W.ED.GENAD ---
Discharge Plan Disposition Patient Disposition: Against Medical Advice Condition: Stable Discharge Details Clinical Impression: Fall, Back pain, Hematoma of lower leg Primary Care Provider: Ruby Herron ED Provider: Faustino Cheema Home Meds and New Rx's Prescriptions: No Action Cosentyx (2 Syringes) 150 mg/mL syringe 300 mg subcut Q4W Rx Instructions: start 4 wks after last weekly dose;inject [id number] doses each in different thigh/upper arm/abdominal areas tamsulosin [Flomax] 0.4 mg capsule 0.4 mg PO DAILY Qty: 90 1RF albuterol sulfate [Proventil HFA] 90 mcg/actuation HFA aerosol inhaler 2 puff inhalation Q6H PRN Spiriva with HandiHaler 18 mcg capsule, w/inhalation device 1 cap inhalation DAILY Rx Instructions: puncture 1 cap using device; one dose = 2 inhalations triamcinolone acetonide 0.1 % cream 1 applic topical DAILY PRN betamethasone valerate 0.1 % cream 1 applic topical DAILY PRN aspirin [Adult Low Dose Aspirin] 81 mg tablet,delayed release (DR/EC) 81 mg PO DAILY atorvastatin [Lipitor] 40 mg tablet 40 mg PO DAILY hydrochlorothiazide 25 mg tablet 25 mg PO DAILY metoprolol tartrate 25 mg tablet 25 mg PO BID Label Comments: pt. thinks he took it this AM, 12/02/20 metformin 1,000 mg tablet 1,000 mg PO BID sertraline 50 mg tablet 50 mg PO DAILY Label Comments: pt. thinks he took it this AM, 12/02/20, pt. unsure if he is taking sertraline or buproprion Keralyt 3 % gel 1 applic topical DAILY mecobalamin (vitamin B12) 1,000 mcg tablet,chewable 1,000 mcg PO DAILY Levemir U-100 Insulin 100 unit/mL solution 20 unit subcut QHS lisinopril 40 mg tablet 40 mg PO DAILY bupropion HCl 150 mg Tablet Extended Release 24 Hr 150 mg PO DAILY Label Comments: pt. thinks he took it this AM, 12/02/20, 08/21/22, pt states he is unsure if he takes ibuprofen 600 mg Tablet 600 mg PO TID Medical Decision Making This is a 62-year-old gentleman who states that at work this morning he fell from a truck approximately 8 foot, now complains of back pain, lower extremity pain worse on the right side, a stiff neck. He does not believe that he struck his head or had any LOC. He denies any midline neck tenderness. Denies any chest pain or abdominal pain. He does report chronic left-sided pelvic pain status post surgical repair, he is scheduled to follow-up with surgery as an outpatient later this week. He has not taken any medication for his symptoms. Unfortunately he is a rather poor and vague historian. He immediately tells me that if I had not come in to the exam room by 1930 he would have left and he wants to know how long he is going to be here. He also wonders if he can go outside and smoke a cigarette. Given his multitude of comorbidities, fall of at least a feet, will obtain trauma CT imaging head and neck, thorax, abdomen, pelvis with thoracic and lumbar spine recon, x-ray of his right tib-fib. Will obtain routine screening laboratory values. Laboratory values did not reveal any evidence of leukocytosis or anemia. No thrombocytopenia. Electrolytes unremarkable, creatinine 1.2 with a GFR of 68.38. AST minimally elevated at 48, otherwise LFTs are unremarkable. Alcohol less than 3. O- blood type. Imaging obtained, please see official report below. Trace left parietal subarachnoid hemorrhage versus artifact. Consider head CT follow-up within 6 hours. Given his trauma today, I do believe it is prudent to obtain this repeat scan. Seroma versus collection left groin as noted, this is likely secondary to his ongoing discomfort and surgical follow-up. Discussed CT imaging with patient and significant other. Patient received 4 mg IV morphine and reports minimal relief. We discussed the concern for his subarachnoid versus artifact and recommendation of CT within 6 hours. Patient denies headache and reports that he would like to leave, does not plan to wait for the repeat CT imaging. He states that he is willing to come back tonight between 2-2:[address] imaging. I explained to him that I cannot discharge him with the potential risks of arachnoid hemorrhage and he would need to leave AGAINST MEDICAL ADVICE. Patient appears clinically sober, is of sound mind, and based upon my clinical examination has the capacity to make their own decisions. We have offered treatment options and discussed the the risks and benefits of these options and refusing these options, including and/or disability specific to the patient's pathology. Pt is able to discuss and understands the risks and benefits and alternatives of treatment and refusing treatment. We have tried to involve the patient's family, significant other, who is also in the exam room. She reports that he is very stubborn and is going to do what ever he wants.. Patient states that he wants to leave, have a cigarette, drink coffee, and have dinner. He states that he will watch TV until 2 AM, not sleep, and come back to the ER. The patient still chooses to leave before evaluation and treatment can be completed AGAINST MEDICAL ADVICE. This documentation was generated using [employer] system, please disregard any oddities of phrase or misspellings. Medical Records Medical records reviewed: Yes I reviewed the patient's medical records. Imaging Data Radiologic Study: Attestation: I personally reviewed and interpreted this imaging study as follows: Imaging: CT Scan Radiologist's impression: PROCEDURE INFORMATION: Exam: CT Head Without Contrast Exam date and time: 10/21/2022 7:38 PM Age: 62 years old Clinical indication: Other: Fall 8 feet TECHNIQUE: Imaging protocol: Computed tomography of the head without contrast. Radiation optimization: All CT scans at this facility use at least one of these dose optimization techniques: automated exposure control; mA and/or kV adjustment per patient size (includes targeted exams where dose is matched to clinical indication); or iterative reconstruction. COMPARISON: No relevant prior studies available. FINDINGS: Brain: Trace subarachnoid hemorrhage versus artifact axial image 35 series 3 in the medial left parietal sulci Mild volume loss . Unremarkable white matter. No mass effect. Cerebral ventricles: No ventriculomegaly. Paranasal sinuses: Minimal polypoid mucosal thickening/tissue. No fluid levels. Mastoid air cells: Visualized mastoid air cells are well aerated. Bones/joints: Unremarkable. No acute fracture. Soft tissues: Unremarkable. IMPRESSION: Trace left parietal subarachnoid hemorrhage versus artifact. Consider head CT follow-up within 6 hours PROCEDURE INFORMATION:Exam: CT Cervical Spine Without Contrast Exam date and time: 10/21/2022 7:38 PM Age: 62 years old Clinical indication: Other: Fall 8 feet TECHNIQUE: Imaging protocol: Computed tomography of the cervical spine without contrast. Radiation optimization: All CT scans at this facility use at least one of these dose optimization techniques: automated exposure control; mA and/or kV adjustment per patient size (includes targeted exams where dose is matched to clinical indication); or iterative reconstruction. COMPARISON: CT CHEST/ABD/PEL WO 03/02/2022 9:09 AM FINDINGS: Bones/joints: No acute fracture. Loss of cervical lordosis is presumably on a degenerative basis. Disc bulging at C4-C5 and C5-C6 noted with moderate central canal stenosis and foraminal stenosis. Lungs: Lung apices are grossly clear Soft tissues: Unremarkable. IMPRESSION: No acute cervical fracture Radiologic Study #2: Attestation: I personally reviewed and interpreted this imaging study as follows: Imaging: CT Scan Radiologist's impression: PROCEDURE INFORMATION: Exam: CT Thoracic Spine Without Contrast Exam date and time: 10/21/2022 7:52 PM Age: 62 years old Clinical indication: Other: Fall 8 feet TECHNIQUE: Imaging protocol: Computed tomography of the thoracic spine without contrast. Radiation optimization: All CT scans at this facility use at least one of these dose optimization techniques: automated exposure control; mA and/or kV adjustment per patient size (includes targeted exams where dose is matched to clinical indication); or iterative reconstruction. COMPARISON: CT HEAD CERVICAL SPINE WO 10/21/2022 7:38 PM FINDINGS: Bones/joints: No acute fracture. Degenerative changes noted No significant disc bulge or herniation. No severe spinal canal stenosis. No significant neural foraminal narrowing. Soft tissues: Unremarkable. IMPRESSION: No acute thoracic fracture PROCEDURE INFORMATION: Exam: CT Lumbar Spine Without Contrast Exam date and time: 10/21/2022 7:52 PM Age: 62 years old Clinical indication: Other: Fall 8 feetTECHNIQUE: Imaging protocol: Computed tomography of the lumbar spine without contrast. Radiation optimization: All CT scans at this facility use at least one of these dose optimization techniques: automated exposure control; mA and/or kV adjustment per patient size (includes targeted exams where dose is matched to clinical indication); or iterative reconstruction. COMPARISON: MR LUMBAR SPINE WO 09/26/2020 3:05 PM FINDINGS: Bones/joints: No acute fracture. Loss of lumbar lordosis is presumed degenerative. Multilevel central canal and foraminal stenosis most pronounced at L3-L4 Soft tissues: Unremarkable. IMPRESSION: No acute findings. Radiologic Study #3: Attestation: I personally reviewed and interpreted this imaging study as follows: Imaging: CT Scan Radiologist's impression: PROCEDURE INFORMATION: Exam: CT Chest With Contrast; Diagnostic Exam date and time: 10/21/2022 7:52 PM Age: 62 years old Clinical indication: Other: Fall 8 feet TECHNIQUE: Imaging protocol: Diagnostic computed tomography of the chest with contrast. Radiation optimization: All CT scans at this facility use at least one of these dose optimization techniques: automated exposure control; mA and/or kV adjustment per patient size (includes targeted exams where dose is matched to clinical indication); or iterative reconstruction. Contrast material: OMNIPAQUE 350; Contrast volume: 100 ml; Contrast route: INTRAVENOUS (IV); COMPARISON: CT CHEST/ABD/PEL WO 03/02/2022 9:09 AM FINDINGS: Lungs: Unremarkable. No consolidation. No masses. Pleural spaces: Unremarkable. No pneumothorax. No pleural effusion. Heart: Unremarkable. No cardiomegaly. No pericardial effusion. Lymph nodes: Unremarkable. No enlarged lymph nodes. Vasculature: Unremarkable. No aortic aneurysm. Bones/joints: Unremarkable. No acute fracture. Soft tissues: Unremarkable. IMPRESSION: No acute findings. PROCEDURE INFORMATION: Exam: CT Abdomen And Pelvis With Contrast Exam date and time: 10/21/2022 7:52 PM Age: 62 years old Clinical indication: Other: Fall 8 feet TECHNIQUE: Imaging protocol: Computed tomography of the abdomen and pelvis with contrast. Radiation optimization: All CT scans at this facility use at least one of these dose optimization techniques: automated exposure control; mA and/or kV adjustment per patient size (includes targeted exams where dose is matched to clinical indication); or iterative reconstruction. Contrast material: OMNIPAQUE 350; Contrast volume: 100 ml; Contrast route: INTRAVENOUS (IV); COMPARISON: CT ABDOMEN PELVIS W 09/25/2022 4:40 PM FINDINGS: Liver: Fatty infiltration. No mass. Gallbladder and bile ducts: Normal. No calcified stones. No ductal dilation. Pancreas: Normal. No ductal dilation. Spleen: Normal. No splenomegaly. Adrenal glands: Normal. No mass. Kidneys and ureters: Prominent right renal collecting system/right renal pelvis without ureteral dilatation Bilateral renal cysts Stomach and bowel: Unremarkable. No obstruction. No mucosal thickening. Appendix: No evidence of appendicitis. Intraperitoneal space: Unremarkable. No free air. No significant fluid collection. Vasculature: Unremarkable. No abdominal aortic aneurysm. Lymph nodes: Unremarkable. No enlarged lymph nodes. Urinary bladder: Unremarkable as visualized. Reproductive: Unremarkable as visualized. Bones/joints: Degenerative changes in the spine. No acute fracture. Soft tissues: Left groin/inguinal collection/seroma measuring up to 5.3 cm IMPRESSION: No solid organ injury Seroma versus collection left groin as noted. Chronic right UPJ obstruction versus recently passed stone as described Radiologic Study #4: Attestation: I personally reviewed and interpreted this imaging study as follows: Imaging: X-Ray Radiologist's impression: PROCEDURE INFORMATION: Exam: XR Right Tibia and Fibula Exam date and time: 10/21/2022 8:03 PM Age: 62 years old Clinical indication: Other: Fall pain TECHNIQUE: Imaging protocol: Radiologic exam of the Right tibia and fibula. Views: 2 views. COMPARISON: No relevant prior studies available. FINDINGS: Bones/joints: No acute fracture or dislocation. Calcaneal spurring noted. Degenerative changes in the midfoot. Chronic ossicle measuring 12 mm superior to the calcaneus Soft tissues: Vascular calcifications IMPRESSION: No acute findings. Lab Data Lab results reviewed: Yes I reviewed the patient's lab results. Labs: Laboratory Tests Range/Units 10/21/22 10/21/22 10/21/22 19:15 19:15 19:15 WBC (4.4-10.8) 10^3/uL RBC (4.36-5.78) 10^6/uL Hgb (13.5-17.5) g/dL Hct (40.0-50.0) % MCV (80-95) fL MCH (27.0-33.0) pg MCHC (32.0-36.0) % RDW (11.8-14.1) % Plt Count (130-400) 10^3/uL MPV (8.0-11.0) fL Immature Gran % Neutrophils % Lymphocytes % Monocytes % Eosinophils % Basophils % Nucleated RBC % (0.0-0.3) % Absolute Neutrophils (1.2-6.7) 10^3/uL Absolute Lymphocytes (1.2-3.4) 10^3/uL Absolute Monocytes (0.1-0.8) 10^3/uL Absolute Eosinophils (0.0-0.7) 10^3/uL Absolute Basophils (0.0-0.2) 10^3/uL PT (9.3-11.0) sec 10.3 INR (0.9-1.1) 1.0 APTT (21.5-31.9) sec 26.7 Sodium (136-145) mmol/L 140 Potassium (3.5-5.1) mmol/L 4.0 Chloride (98-107) mmol/L 101 Carbon Dioxide (21.0-32.0) mmol/L 28.5 Anion Gap (3-11) mmol/L 10.5 BUN (7-18) mg/dL 15 Creatinine (0.70-1.30) mg/dL 1.2 Est GFR (CKD-EPI 2020) (mL/min/1.73m2) 68.38 Glucose (74-106) mg/dL 180 H Calcium (8.5-10.1) mg/dL 10.1 Total Bilirubin (0.2-1.0) mg/dL 0.9 AST (15-37) U/L 48 H ALT (16-63) U/L 32 Alkaline Phosphatase (46-116) U/L 71 Total Protein (6.4-8.2) g/dL 7.8 Albumin (3.4-5.0) g/dL 4.6 Lipase (16-77) U/L 59 Ethyl Alcohol (<10) mg/dL < 3.0 Patient ABO/Rh Antibody Screen Range/Units 10/21/22 10/21/22 19:15 19:33 WBC (4.4-10.8) 10^3/uL 9.76 RBC (4.36-5.78) 10^6/uL 4.93 Hgb (13.5-17.5) g/dL 16.1 Hct (40.0-50.0) % 46.9 MCV (80-95) fL 95 MCH (27.0-33.0) pg 32.7 MCHC (32.0-36.0) % 34.3 RDW (11.8-14.1) % 13.2 Plt Count (130-400) 10^3/uL 139 MPV (8.0-11.0) fL 10.8 Immature Gran % 0.5 Neutrophils % 77.0 Lymphocytes % 16.1 Monocytes % 4.6 Eosinophils % 1.3 Basophils % 0.5 Nucleated RBC % (0.0-0.3) % 0.0 Absolute Neutrophils (1.2-6.7) 10^3/uL 7.51 H Absolute Lymphocytes (1.2-3.4) 10^3/uL 1.57 Absolute Monocytes (0.1-0.8) 10^3/uL 0.45 Absolute Eosinophils (0.0-0.7) 10^3/uL 0.13 Absolute Basophils (0.0-0.2) 10^3/uL 0.05 PT (9.3-11.0) sec INR (0.9-1.1) APTT (21.5-31.9) sec Sodium (136-145) mmol/L Potassium (3.5-5.1) mmol/L Chloride (98-107) mmol/L Carbon Dioxide (21.0-32.0) mmol/L Anion Gap (3-11) mmol/L BUN (7-18) mg/dL Creatinine (0.70-1.30) mg/dL Est GFR (CKD-EPI 2020) (mL/min/1.73m2) Glucose (74-106) mg/dL Calcium (8.5-10.1) mg/dL Total Bilirubin (0.2-1.0) mg/dL AST (15-37) U/L ALT (16-63) U/L Alkaline Phosphatase (46-116) U/L Total Protein (6.4-8.2) g/dL Albumin (3.4-5.0) g/dL Lipase (16-77) U/L Ethyl Alcohol (<10) mg/dL Patient ABO/Rh O Negative Antibody Screen NEGATIVE HPI General Mode of arrival: ambulatory. Date/Time Provider Initiated Documentation: 10/21/22 19:02. Limitations to Documentation: no limitations. Information obtained by: patient. HPI Narrative: This is a 62-year-old gentleman current smoker, history of COPD, diabetes, depression, GERD, Htn, presenting to the ER today status post fall while on a truck, approximately 8 feet, reporting multiple complaints, bilateral lower leg injuries, right leg worse with a large hematoma, diffuse back pain worse middle and left lower, and overall stiff neck. He does not believe that he struck his head, denies LOC or headache. Denies visual changes, chest pain, abdominal pain, focal numbness, tingling, weakness. Patient continued to work throughout the day. Has not taken any medication for his symptoms. Reports pain is moderate, worse with movement. Patient does report chronic left pelvic pain status post a failed surgery, states he is scheduled to see his surgeon later this week. He reports that pain is unchanged. Related Data Home Medications Medication Instructions Recorded Confirmed albuterol sulfate 90 mcg/actuation 2 puff inhalation Q6H PRN 10/10/20 10/21/22 aerosol inhaler (Proventil HFA) aspirin 81 mg tablet,delayed 81 mg PO DAILY 10/10/20 10/21/22 release (Adult Low Dose Aspirin) atorvastatin 40 mg tablet (Lipitor) 40 mg PO DAILY 10/10/20 10/21/22 betamethasone valerate 0.1 % 1 applic topical DAILY PRN 10/10/20 10/21/22 topical cream hydrochlorothiazide 25 mg tablet 25 mg PO DAILY 10/10/20 10/21/22 metformin 1,000 mg tablet 1,000 mg PO BID 10/10/20 10/21/22 metoprolol tartrate 25 mg tablet 25 mg PO BID 10/10/20 10/21/22 tiotropium bromide 18 mcg capsule 1 cap inhalation DAILY 10/10/20 10/21/22 with inhalation device (Spiriva with HandiHaler) triamcinolone acetonide 0.1 % 1 applic topical DAILY PRN 10/10/20 10/21/22 topical cream secukinumab 150 mg/mL subcutaneous 300 mg subcut Q4W 11/22/20 10/21/22 syringe (Cosentyx 300 mg/2 Syringes () sertraline 50 mg tablet 50 mg PO DAILY 11/22/20 10/21/22 bupropion HCl 150 mg 24 hr tablet, 150 mg PO DAILY 11/28/20 10/21/22 extended release salicylic acid 3 % topical gel 1 applic topical DAILY 02/23/22 10/21/22 (Keralyt) insulin detemir U-100 100 unit/mL 20 unit subcut QHS 03/04/22 10/21/22 subcutaneous solution (Levemir U-100 Insulin) mecobalamin (vitamin B12) 1,000 1,000 mcg PO DAILY 03/04/22 10/21/22 mcg chewable tablet tamsulosin 0.4 mg capsule (Flomax) 0.4 mg PO DAILY #90 caps 05/19/22 10/21/22 lisinopril 40 mg tablet 40 mg PO DAILY 08/05/22 10/21/22 ibuprofen 600 mg tablet 600 mg PO TID 08/21/22 10/21/22 Previous Rx's Medication Instructions Recorded tamsulosin 0.4 mg capsule (Flomax) 0.4 mg PO DAILY #90 caps 05/19/22 Allergies Allergy/AdvReac Type Severity Reaction Status Date / Time ampicillin Allergy Severe rash Verified 10/21/22 18:27 amoxicillin Allergy Mild unknown Verified 10/21/22 18:27 some kind of cillin Allergy Uncoded 10/21/22 18:27 General Stated Complaint: Nk/Back Pain KASIA: 3 Review of Systems Constitutional Constitutional: Denies fatigue, Denies fever(s), Denies headache(s) and Denies weakness Eyes Eyes: Denies change in vision ENT Ears, Nose, Mouth, and Throat: Denies headache(s) and Reports neck pain Cardiovascular Cardiovascular: Denies chest pain and Denies dyspnea Respiratory Respiratory: Reports cough (Chronic) and Denies dyspnea Gastrointestinal Gastrointestinal: Denies abdominal pain, Denies nausea and Denies vomiting Genitourinary Genitourinary: Denies urinary incontinence Musculoskeletal Musculoskeletal: Reports back pain, Reports neck pain, Denies numbness and Denies tingling Integumentary/Breasts Skin/Breast: Denies rash Neurologic Neurologic: Denies headache(s), Denies numbness, Denies tingling and Denies weakness Endocrine Endocrine: Denies fatigue Hematologic/Lymphatic Hematologic/Lymphatic: Reports easy bleeding and Reports easy bruising Comments: Not anticoagulated PFSH All Active Problems (Updated 10/21/22 @ 21:41 by TOMY De La Rosa) Fall (Acute) Back pain (Acute) Hematoma of lower leg (Acute) Traumatic hematoma of abdominal wall (Acute) BPH loc w urin obs/LUTS (Acute) Excessive and redundant skin and subcutaneous tissue (Acute) Chronic diarrhea (Acute) Poorly controlled type 2 diabetes mellitus with autonomic neuropathy (Acute) Dyspnea on exertion (Acute) Type 2 diabetes mellitus (Acute) Stage 1 mild COPD by GOLD classification (Acute) Tobacco abuse (Acute) Alcohol abuse, episodic (Acute) Medical History B12 deficiency Depression GERD (gastroesophageal reflux disease) Hx of chronic arthritis back Hx of emphysema Hx of fracture of finger Left hand Hx of psoriasis Hyperlipidemia Hyperplastic colon polyp Hypertension Left hydrocele Osteoarthritis Psoriasis Stasis dermatitis Tubular adenoma of colon Venous insufficiency Weight loss Surgical History History of arthroscopic surgery of elbow Hx of vein stripping left leg Social History Smoking/Tobacco Use Status: Current-Occasional Tobacco Type: cigarettes Smoking packs per day: 1 Smoking cigarettes per day: 20.0 Smoking risk assessment performed?: Yes Alcohol Intake: current Alcohol Intake frequency: 0-2 drinks per day Alcohol type: hard liquor Substance use type: does not use Details: pt. reports smoking a pack a day. Alcohol:t-1, couple of shots Current gender identity: male Do you feel safe at home: Yes Do you feel safe in your relationship?: Yes Exam Const General: cooperative, no acute distress and other (Appears uncomfortable) Orientation: alert, awake and oriented x3 HENMT Head: normal to inspection, no palpable skull fracture, normocephalic and atraumatic Face and sinus: normal facial exam Mouth: moist mucous membranes Eyes Conjunctivae: conjunctivae normal Neck Neck: normal visual inspection, full ROM, no meningeal signs, trachea midline, supple and nontender Chest Chest: normal inspection of the chest and normal palpation of entire chest wall Resp Effort & Inspection: normal respiratory effort and able to speak in complete sentences Auscultation: diminished lung sounds bilaterally in the lower lung russell and wheezes (Rare scattered throughout, mostly clear with coughing) Cardio Rate: regular rate Rhythm: regular rhythm GI Palpation: soft, not firm, no guarding, no pulsatile masses and nontender Back/Spine/Pelvis Back: no CVA tenderness and back tenderness (Diffuse, worse left thoracic region. No midline point tenderness) Skin General skin exam: no rashes or lesions noted Neuro General: patient alert, patient awake, patient oriented x3, moves all extremities and no focal motor deficits Cranial Nerves: CN's II-XI intact bilaterally Cognition: normal cognition Speech: speech normal Gait: antalgic Motor: muscle tone normal throughout Sensory Exam: no sensory deficits noted Extrem General: full ROM and capillary refill normal Upper/lower leg/hip images: 1. Hematoma, nontender 2. Hematoma, tenderness. Other: Left arm abrasion Psych Appearance: grossly normal Mental Status: mental status grossly normal Course Vital Signs Vital signs: Vital Signs Temperature 36.8 C 10/21/22 18:24 Pulse 97 H 10/21/22 18:24 Respiratory Rate 18 10/21/22 18:24 Blood Pressure 157/89 H 10/21/22 18:24 Pulse Oximetry 99 10/21/22 18:24 Temperature 36.8 C 10/21/22 18:24 Temperature Source Temporal Artery Scan 10/21/22 18:24 Pulse 97 H 10/21/22 18:24 Respiratory Rate 18 10/21/22 18:24 Respiratory Effort 10/21/22 18:26 Blood Pressure 157/89 H 10/21/22 18:24 Blood Pressure Position Sitting 10/21/22 18:24 Pulse Oximetry 99 10/21/22 18:24 Oxygen Delivery Method Room Air 10/21/22 18:24 Oxygen Flow Rate 0 10/21/22 18:24 Pain Level 10 10/21/22 18:28
[2022-10-21 19:34] LABS: Abs Immature Grans 0.05 10^3/uL (0.0-0.06); Absolute Basophil Count 0.05 10^3/uL (0.0-0.2); Absolute Eosinophil Count 0.13 10^3/uL (0.0-0.7); Absolute Lymphocyte Count 1.57 10^3/uL (1.2-3.4); Absolute Monocyte Count 0.45 10^3/uL (0.1-0.8); Absolute Neutrophil Count 7.51 10^3/uL (1.2-6.7); Basophils % 0.5; Eosinophils % 1.3; HCT 46.9 % (40.0-50.0); HGB 16.1 g/dL (13.5-17.5); Immature Grans % 0.5; Lymphocytes % 16.1; MCH 32.7 pg (27.0-33.0); MCHC 34.3 % (32.0-36.0); MCV 95 fL (80-95); MPV 10.8 fL (8.0-11.0); Monocytes % 4.6; Platelet Count 139 10^3/uL (130-400); RBC 4.93 10^6/uL (4.36-5.78); RDW 13.2 % (11.8-14.1); RDW-SD 46.6 fL; WBC 9.76 10^3/uL (4.4-10.8)
[2022-10-21] MEDS: Normal Saline - Diluent 50 ML VIAL IJ (19:42)
[2022-10-21] MEDS: Omnipaque 350 MG/ML 100 ML BTL IJ (19:42)
[2022-10-21 19:45] LABS: Lipase 59 U/L (16-77)
[2022-10-21 19:49] LABS: ALT 32 U/L (16-63); AST 48 U/L (15-37); Albumin 4.6 g/dL (3.4-5.0); Alkaline Phosphatase 71 U/L (46-116); Anion Gap 10.5 mmol/L (3-11); BUN 15 mg/dL (7-18); Bilirubin, Total 0.9 mg/dL (0.2-1.0); CO2 28.5 mmol/L (21.0-32.0); CREATININE 1.2 mg/dL (0.70-1.30); Calcium 10.1 mg/dL (8.5-10.1); Chloride 101 mmol/L (98-107); Estimated GFR 68.38 (mL/min/1.73m2); Glucose 180 mg/dL (74-106); PTT Activated 26.7 sec (21.5-31.9); Prothrombin Time 10.3 sec (9.3-11.0); Sodium 140 mmol/L (136-145); Total Protein 7.8 g/dL (6.4-8.2)
[2022-10-21 19:55] LABS: ETHANOL BLOOD < 3.0 mg/dL (<10)
--- NOTE | 2022-10-21 20:16 | DI.VRAD_ITS ---
PROCEDURE INFORMATION: Exam: CT Thoracic Spine Without Contrast Exam date and time: 10/21/2022 7:52 PM Age: 62 years old Clinical indication: Other: Fall 8 feet TECHNIQUE: Imaging protocol: Computed tomography of the thoracic spine without contrast. Radiation optimization: All CT scans at this facility use at least one of these dose optimization techniques: automated exposure control; mA and/or kV adjustment per patient size (includes targeted exams where dose is matched to clinical indication); or iterative reconstruction. COMPARISON: CT HEAD CERVICAL SPINE WO 10/21/2022 7:38 PM FINDINGS: Bones/joints: No acute fracture. Degenerative changes noted No significant disc bulge or herniation. No severe spinal canal stenosis. No significant neural foraminal narrowing. Soft tissues: Unremarkable. IMPRESSION: No acute thoracic fracture PROCEDURE INFORMATION: Exam: CT Lumbar Spine Without Contrast Exam date and time: 10/21/2022 7:52 PM Age: 62 years old Clinical indication: Other: Fall 8 feet TECHNIQUE: Imaging protocol: Computed tomography of the lumbar spine without contrast. Radiation optimization: All CT scans at this facility use at least one of these dose optimization techniques: automated exposure control; mA and/or kV adjustment per patient size (includes targeted exams where dose is matched to clinical indication); or iterative reconstruction. COMPARISON: MR LUMBAR SPINE WO 09/26/2020 3:05 PM FINDINGS: Bones/joints: No acute fracture. Loss of lumbar lordosis is presumed degenerative. Multilevel central canal and foraminal stenosis most pronounced at L3-L4 Soft tissues: Unremarkable. IMPRESSION: No acute findings. Dictated and Authenticated by: Demarcus Alvarado MD. Ordering:NIKI Harmon MD
--- NOTE | 2022-10-21 20:16 | DI.VRAD_ITS ---
PROCEDURE INFORMATION: Exam: CT Head Without Contrast Exam date and time: 10/21/2022 7:38 PM Age: 62 years old Clinical indication: Other: Fall 8 feet TECHNIQUE: Imaging protocol: Computed tomography of the head without contrast. Radiation optimization: All CT scans at this facility use at least one of these dose optimization techniques: automated exposure control; mA and/or kV adjustment per patient size (includes targeted exams where dose is matched to clinical indication); or iterative reconstruction. COMPARISON: No relevant prior studies available. FINDINGS: Brain: Trace subarachnoid hemorrhage versus artifact axial image 35 series 3 in the medial left parietal sulci Mild volume loss . Unremarkable white matter. No mass effect. Cerebral ventricles: No ventriculomegaly. Paranasal sinuses: Minimal polypoid mucosal thickening/tissue. No fluid levels. Mastoid air cells: Visualized mastoid air cells are well aerated. Bones/joints: Unremarkable. No acute fracture. Soft tissues: Unremarkable. IMPRESSION: Trace left parietal subarachnoid hemorrhage versus artifact. Consider head CT follow-up within 6 hours PROCEDURE INFORMATION: Exam: CT Cervical Spine Without Contrast Exam date and time: 10/21/2022 7:38 PM Age: 62 years old Clinical indication: Other: Fall 8 feet TECHNIQUE: Imaging protocol: Computed tomography of the cervical spine without contrast. Radiation optimization: All CT scans at this facility use at least one of these dose optimization techniques: automated exposure control; mA and/or kV adjustment per patient size (includes targeted exams where dose is matched to clinical indication); or iterative reconstruction. COMPARISON: CT CHEST/ABD/PEL WO 03/02/2022 9:09 AM FINDINGS: Bones/joints: No acute fracture. Loss of cervical lordosis is presumably on a degenerative basis. Disc bulging at C4-C5 and C5-C6 noted with moderate central canal stenosis and foraminal stenosis. Lungs: Lung apices are grossly clear Soft tissues: Unremarkable. IMPRESSION: No acute cervical fracture Dictated and Authenticated by: Demarcus Alvarado MD. Ordering:NIKI Harmon MD
--- NOTE | 2022-10-21 20:16 | DI.VRAD_ITS ---
PROCEDURE INFORMATION: Exam: CT Chest With Contrast; Diagnostic Exam date and time: 10/21/2022 7:52 PM Age: 62 years old Clinical indication: Other: Fall 8 feet TECHNIQUE: Imaging protocol: Diagnostic computed tomography of the chest with contrast. Radiation optimization: All CT scans at this facility use at least one of these dose optimization techniques: automated exposure control; mA and/or kV adjustment per patient size (includes targeted exams where dose is matched to clinical indication); or iterative reconstruction. Contrast material: OMNIPAQUE 350; Contrast volume: 100 ml; Contrast route: INTRAVENOUS (IV); COMPARISON: CT CHEST/ABD/PEL WO 03/02/2022 9:09 AM FINDINGS: Lungs: Unremarkable. No consolidation. No masses. Pleural spaces: Unremarkable. No pneumothorax. No pleural effusion. Heart: Unremarkable. No cardiomegaly. No pericardial effusion. Lymph nodes: Unremarkable. No enlarged lymph nodes. Vasculature: Unremarkable. No aortic aneurysm. Bones/joints: Unremarkable. No acute fracture. Soft tissues: Unremarkable. IMPRESSION: No acute findings. PROCEDURE INFORMATION: Exam: CT Abdomen And Pelvis With Contrast Exam date and time: 10/21/2022 7:52 PM Age: 62 years old Clinical indication: Other: Fall 8 feet TECHNIQUE: Imaging protocol: Computed tomography of the abdomen and pelvis with contrast. Radiation optimization: All CT scans at this facility use at least one of these dose optimization techniques: automated exposure control; mA and/or kV adjustment per patient size (includes targeted exams where dose is matched to clinical indication); or iterative reconstruction. Contrast material: OMNIPAQUE 350; Contrast volume: 100 ml; Contrast route: INTRAVENOUS (IV); COMPARISON: CT ABDOMEN PELVIS W 09/25/2022 4:40 PM FINDINGS: Liver: Fatty infiltration. No mass. Gallbladder and bile ducts: Normal. No calcified stones. No ductal dilation. Pancreas: Normal. No ductal dilation. Spleen: Normal. No splenomegaly. Adrenal glands: Normal. No mass. Kidneys and ureters: Prominent right renal collecting system/right renal pelvis without ureteral dilatation Bilateral renal cysts Stomach and bowel: Unremarkable. No obstruction. No mucosal thickening. Appendix: No evidence of appendicitis. Intraperitoneal space: Unremarkable. No free air. No significant fluid collection. Vasculature: Unremarkable. No abdominal aortic aneurysm. Lymph nodes: Unremarkable. No enlarged lymph nodes. Urinary bladder: Unremarkable as visualized. Reproductive: Unremarkable as visualized. Bones/joints: Degenerative changes in the spine. No acute fracture. Soft tissues: Left groin/inguinal collection/seroma measuring up to 5.3 cm IMPRESSION: No solid organ injury Seroma versus collection left groin as noted. Chronic right UPJ obstruction versus recently passed stone as described Dictated and Authenticated by: Demarcus Alvarado MD. Ordering:NIKI Harmon MD
--- NOTE | 2022-10-21 20:17 | DI.VRAD_ITS ---
PROCEDURE INFORMATION: Exam: XR Right Tibia and Fibula Exam date and time: 10/21/2022 8:03 PM Age: 62 years old Clinical indication: Other: Fall pain TECHNIQUE: Imaging protocol: Radiologic exam of the Right tibia and fibula. Views: 2 views. COMPARISON: No relevant prior studies available. FINDINGS: Bones/joints: No acute fracture or dislocation. Calcaneal spurring noted. Degenerative changes in the midfoot. Chronic ossicle measuring 12 mm superior to the calcaneus Soft tissues: Vascular calcifications IMPRESSION: No acute findings. Dictated and Authenticated by: Demarcus Alvarado MD. Ordering:NIKI Harmon MD
[2022-10-21] MEDS: Normal Saline 1,000 ML 1000 ML IV (20:23)
[2022-10-21] MEDS: MORPHine 4 MG/ML SYR IVP (20:29)
[2022-10-21 20:32] VITALS: BP 125/80; PULSE 82; O2SAT 98
[2022-10-21 20:33] VITALS: O2SAT 98
[2022-10-21 21:00] VITALS: BP 115/62; PULSE 89; RESP 24; TEMP 36.2; O2SAT 98
--- NOTE | 2022-10-22 07:23 | NUR.NOTE ---
Nursing Note: Referral faxed to [facility] Neurology for headaches in 1 to 2 weeks
== END 2022-10-21 20:58 | disposition left against medical advice (07) ==
PROVIDERS: Emergency Provider Physician Assistant; PCP Family Medicine
DX: S80.12XA Contusion of left lower leg, initial encounter (principal); S80.11XA Contusion of right lower leg, initial encounter; S40.812A Abrasion of left upper arm, initial encounter; J44.9 Chronic obstructive pulmonary disease, unspecified; E11.9 Type 2 diabetes mellitus without complications; I10 Essential (primary) hypertension; G89.11 Acute pain due to trauma; M54.6 Pain in thoracic spine; Z79.82 Long term (current) use of aspirin; Z79.84 Long term (current) use of oral hypoglycemic drugs; Z79.4 Long term (current) use of insulin; Z53.29 Procedure and treatment not carried out because of patient's decision for other reasons; W17.89XA Other fall from one level to another, initial encounter; Y99.0 Civilian activity done for income or pay
CPT/HCPCS: 74177; 80053; 83690; 86850; 86900; 86901; 96361; 96374; 99285; 70450; 71260; 72125; 73590; 80320; 85025; 85610; 85730; 99284; J2270; J3490

== ENCOUNTER 2022-10-22 02:28 | Emergency (ER) | payer MEDICAID, SELFPAY ==
--- NOTE | 2022-10-22 02:30 | DI.CT_ITS ---
Exam(s) CT HEAD WO EXAM: CT HEAD WO CLINICAL HISTORY: fall, possible SAH vs artifact on CT head 6 hr ago. TECHNIQUE: Imaging Protocol: Axial computed tomography images with coronal and sagittal reformatted images were created and reviewed COMPARISON: CT CT HEAD CERVICAL SPINE WO from 10/21/2022 FINDINGS: There are no skull fractures. There is no fluid in the visualized paranasal sinuses. There is no evidence of intracranial hemorrhage, mass effect, or shift of midline structures. There are no extra-axial fluid collections. The ventricles are not enlarged or shifted and there is no blo od within the ventricular system nor within the basal cisterns. IMPRESSION: No acute intracranial findings on this noninfused CT scan of the brain. No evidence of intracranial hemorrhage at this time. RADIATION DOSE DELIVERED: 786.74mGy.cm Total DLP DATA REPOSITORY: All CT scans at this facility are submitted to the National Radiology Data Registry (NRDR) Dose Index Registry (DIR) with the [employer] ([employer]). RADIATION OPTIMIZATION: All CT scans at this facility use at least one of these dose optimization te chniques: automated exposure control; mA and/or kV adjustment per patient size (includes targeted exa ms where dose is matched to clinical indication); or iterative reconstruction.
[2022-10-22 02:31] VITALS: BP 121/68; PULSE 86; RESP 18; TEMP 36.5; O2SAT 99
--- NOTE | 2022-10-22 02:36 | ED.GENADUL_ITS ---
Discharge Plan Disposition Patient Disposition: Home Condition: Good Discharge Details Clinical Impression: H/O CT scan of head, Chronic headache Primary Care Provider: Ruby Herron ED Provider: Yane Gaston Home Meds and New Rx's Prescriptions: Continued Cosentyx (2 Syringes) 150 mg/mL syringe 300 mg subcut Q4W Rx Instructions: start 4 wks after last weekly dose;inject [id number] doses each in different thigh/upper arm/abdominal areas tamsulosin [Flomax] 0.4 mg capsule 0.4 mg PO DAILY Qty: 90 1RF albuterol sulfate [Proventil HFA] 90 mcg/actuation HFA aerosol inhaler 2 puff inhalation Q6H PRN Spiriva with HandiHaler 18 mcg capsule, w/inhalation device 1 cap inhalation DAILY Rx Instructions: puncture 1 cap using device; one dose = 2 inhalations triamcinolone acetonide 0.1 % cream 1 applic topical DAILY PRN betamethasone valerate 0.1 % cream 1 applic topical DAILY PRN aspirin [Adult Low Dose Aspirin] 81 mg tablet,delayed release (DR/EC) 81 mg PO DAILY atorvastatin [Lipitor] 40 mg tablet 40 mg PO DAILY hydrochlorothiazide 25 mg tablet 25 mg PO DAILY metoprolol tartrate 25 mg tablet 25 mg PO BID Patient Comments: pt. thinks he took it this AM, 12/02/20 metformin 1,000 mg tablet 1,000 mg PO BID sertraline 50 mg tablet 50 mg PO DAILY Patient Comments: pt. thinks he took it this AM, 12/02/20, pt. unsure if he is taking sertraline or buproprion Keralyt 3 % gel 1 applic topical DAILY mecobalamin (vitamin B12) 1,000 mcg tablet,chewable 1,000 mcg PO DAILY Levemir U-100 Insulin 100 unit/mL solution 20 unit subcut QHS lisinopril 40 mg tablet 40 mg PO DAILY bupropion HCl 150 mg Tablet Extended Release 24 Hr 150 mg PO DAILY Patient Comments: pt. thinks he took it this AM, 12/02/20, 08/21/22, pt states he is unsure if he takes ibuprofen 600 mg Tablet 600 mg PO TID Discharge Instructions Instructions: General Headache (ED) Additional Instructions: The CT scan of your head today shows likely artifact which may be the result of a blood vessel. There was no acute bleeding noted on the CAT scan of your head today. Drink plenty of fluids and get plenty of rest. Take Tylenol as needed and directed for pain. You have been placed on care management's list to arrange for a follow-up appointment with your primary care doctor within the next week for reevaluation and for referral for possible MRI brain for your chronic headaches and for referral to the neurologist Dr. Ramos for further evaluation of your chronic headaches. Return immediately to the emergency department if you develop any worsening or new concerning symptoms. Referrals: Peyton Ramos MD [ [facility] STAFF PHYSICIAN] - Discharge Data Discharge Date/Time-TO BE ENTERED AT DEPARTURE: 10/22/22 06:00 Discharge Physician: Yane Gaston Medical Decision Making 0245 -- 62-year-old male with a history of hypertension, hyperlipidemia, GERD, depression, chronic tobacco smoking presents for repeat CT head imaging after seen here last night for a fall with note of possible subarachnoid hemorrhage versus artifact on CT head imaging.Patient had left AMA at that time and stated that he would return around 2 AM at the 6-hour linda. Patient admits to chronic headaches occurring daily for the past month and states is no worse than usual. He denies any new complaints. His vitals are within normal limits. Patient appears comfortable and nontoxic. He has no focal deficits. Will obtain CT head and give a dose of Tylenol. If no acute change in CT head imaging, will discharge to home. If any new or acute findings, will discuss with [facility] neurosurgery. 0430 -- CT head reviewed and notes: IMPRESSION: The previously question trace subarachnoid hemorrhage versus artifact left medial parietal lobe is less obvious on current imaging in his felt to have been due to artifact, likely a cortical vessel. No evidence acute extra-axial fluid collection. Patient reassessed and he is requesting to go home. Patient states he has had chronic headaches for over a month. Patient placed on care management list to arrange for a follow-up appointment with his primary care doctor for reevaluation and for consideration for referral for MRI brain and for referral to neurology for further evaluation of chronic headaches. Usual and customary return precautions given prior to discharge. Medical Records Medical records reviewed: Yes I reviewed the patient's medical records. Medical records narrative: 10/21/22 CT Head Without Contrast Exam date and time: 10/21/2022 7:38 PM Age: 62 years old Clinical indication: Other: Fall 8 feet TECHNIQUE: Imaging protocol: Computed tomography of the head without contrast. Radiation optimization: All CT scans at this facility use at least one of these dose optimization techniques: automated exposure control; mA and/or kV adjustment per patient size (includes targeted exams where dose is matched to clinical indication); or iterative reconstruction. COMPARISON: No relevant prior studies available. FINDINGS: Brain:? Trace subarachnoid hemorrhage versus artifact axial image 35 series 3 in the medial left parietal sulci Mild volume loss . Unremarkable white matter. No mass effect. Cerebral ventricles: No ventriculomegaly. Paranasal sinuses:? Minimal polypoid mucosal thickening/tissue. No fluid levels. Mastoid air cells: Visualized mastoid air cells are well aerated. Bones/joints: Unremarkable. No acute fracture. Soft tissues: Unremarkable. IMPRESSION: Trace left parietal subarachnoid hemorrhage versus artifact. Consider head CT follow-up within [address] Cervical Spine Without Contrast Exam date and time: 10/21/2022 7:38 PM Age: 62 years old Clinical indication: Other: Fall 8 feet TECHNIQUE: Imaging protocol: Computed tomography of the cervical spine without contrast. Radiation optimization: All CT scans at this facility use at least one of these dose optimization techniques: automated exposure control; mA and/or kV adjustment per patient size (includes targeted exams where dose is matched to clinical indication); or iterative reconstruction. COMPARISON: CT CHEST/ABD/PEL WO 03/02/2022 9:09 AM FINDINGS: Bones/joints: No acute fracture. Loss of cervical lordosis is presumably on a degenerative basis.? Disc bulging at C4-C5 and C5-C6 noted with moderate central canal stenosis and foraminal stenosis. Lungs: Lung apices are grossly clear Soft tissues: Unremarkable. IMPRESSION: No acute cervical fracture CT Chest With Contrast; Diagnostic Exam date and time: 10/21/2022 7:52 PM Age: 62 years old Clinical indication: Other: Fall 8 feet TECHNIQUE: Imaging protocol: Diagnostic computed tomography of the chest with contrast. Radiation optimization: All CT scans at this facility use at least one of these dose optimization techniques: automated exposure control; mA and/or kV adjustment per patient size (includes targeted exams where dose is matched to clinical indication); or iterative reconstruction. Contrast material: OMNIPAQUE 350; Contrast volume: 100 ml; Contrast route: INTRAVENOUS (IV);? COMPARISON: CT CHEST/ABD/PEL WO 03/02/2022 9:09 AM FINDINGS: Lungs: Unremarkable. No consolidation. No masses. Pleural spaces: Unremarkable. No pneumothorax. No pleural effusion. Heart: Unremarkable. No cardiomegaly. No pericardial effusion. Lymph nodes: Unremarkable. No enlarged lymph nodes. Vasculature: Unremarkable. No aortic aneurysm.? Bones/joints: Unremarkable. No acute fracture. Soft tissues: Unremarkable. IMPRESSION: No acute findings. CT Abdomen And Pelvis With Contrast Exam date and time: 10/21/2022 7:52 PM Age: 62 years old Clinical indication: Other: Fall 8 feet TECHNIQUE: Imaging protocol: Computed tomography of the abdomen and pelvis with contrast. Radiation optimization: All CT scans at this facility use at least one of these dose optimization techniques: automated exposure control; mA and/or kV adjustment per patient size (includes targeted exams where dose is matched to clinical indication); or iterative reconstruction. Contrast material: OMNIPAQUE 350; Contrast volume: 100 ml; Contrast route: INTRAVENOUS (IV);? COMPARISON: CT ABDOMEN PELVIS W 09/25/2022 4:40 PM FINDINGS: Liver:? Fatty infiltration. No mass. Gallbladder and bile ducts: Normal. No calcified stones. No ductal dilation. Pancreas: Normal. No ductal dilation. Spleen: Normal. No splenomegaly. Adrenal glands: Normal. No mass. Kidneys and ureters:? Prominent right renal collecting system/right renal pelvis without ureteral dilatation Bilateral renal cysts Stomach and bowel: Unremarkable. No obstruction. No mucosal thickening. Appendix: No evidence of appendicitis. Intraperitoneal space: Unremarkable. No free air. No significant fluid collection. Vasculature: Unremarkable. No abdominal aortic aneurysm. Lymph nodes: Unremarkable. No enlarged lymph nodes. Urinary bladder: Unremarkable as visualized. Reproductive: Unremarkable as visualized. Bones/joints:? Degenerative changes in the spine. No acute fracture. Soft tissues:? Left groin/inguinal collection/seroma measuring up to 5.3 cm IMPRESSION: No solid organ injury Seroma versus collection left groin as noted. Chronic right UPJ obstruction versus recently passed stone as described CT Thoracic Spine Without Contrast Exam date and time: 10/21/2022 7:52 PM Age: 62 years old Clinical indication: Other: Fall 8 feet TECHNIQUE: Imaging protocol: Computed tomography of the thoracic spine without contrast. Radiation optimization: All CT scans at this facility use at least one of these dose optimization techniques: automated exposure control; mA and/or kV adjustment per patient size (includes targeted exams where dose is matched to clinical indication); or iterative reconstruction. COMPARISON: CT HEAD CERVICAL SPINE WO 10/21/2022 7:38 PM FINDINGS: Bones/joints: No acute fracture.? Degenerative changes noted No significant disc bulge or herniation. No severe spinal canal stenosis. No significant neural foraminal narrowing. Soft tissues: Unremarkable. IMPRESSION: No acute thoracic fracture CT Lumbar Spine Without Contrast Exam date and time: 10/21/2022 7:52 PM Age: 62 years old Clinical indication: Other: Fall 8 feet TECHNIQUE: Imaging protocol: Computed tomography of the lumbar spine without contrast. Radiation optimization: All CT scans at this facility use at least one of these dose optimization techniques: automated exposure control; mA and/or kV adjustment per patient size (includes targeted exams where dose is matched to clinical indication); or iterative reconstruction. COMPARISON: MR LUMBAR SPINE WO 09/26/2020 3:05 PM FINDINGS: Bones/joints: No acute fracture.? Loss of lumbar lordosis is presumed degenerative. Multilevel central canal and foraminal stenosis most pronounced at L3-L4 Soft tissues: Unremarkable. IMPRESSION: No acute findings. XR Right Tibia and Fibula Exam date and time: 10/21/2022 8:03 PM Age: 62 years old Clinical indication: Other: Fall pain TECHNIQUE: Imaging protocol: Radiologic exam of the Right tibia and fibula. Views: 2 views. COMPARISON: No relevant prior studies available. FINDINGS: Bones/joints:? No acute fracture or dislocation. Calcaneal spurring noted. Degenerative changes in the midfoot. Chronic ossicle measuring 12 mm superior to the calcaneus Soft tissues:? Vascular calcifications IMPRESSION: No acute findings. Imaging Data Radiologic Study: Radiologist's impression: CT Head Without Contrast Exam date and time: 10/22/2022 2:52 AM Age: 62 years old Clinical indication: Other: Fall, possible sah vs artifact on CT head 6 hours ago TECHNIQUE: Imaging protocol: Computed tomography of the head without contrast. Radiation optimization: All CT scans at this facility use at least one of these dose optimization techniques: automated exposure control; mA and/or kV adjustment per patient size (includes targeted exams where dose is matched to clinical indication); or iterative reconstruction. COMPARISON: CT HEAD CERVICAL SPINE WO 10/21/2022 7:38 PM FINDINGS: Brain: The previously question trace subarachnoid hemorrhage versus artifact left medial parietal lobe is less obvious on current imaging in his felt to have been due to artifact, likely a cortical vessel. No evidence acute extra-axial fluid collection Cerebral ventricles: No ventriculomegaly. Paranasal sinuses: Visualized sinuses are unremarkable. No fluid levels. Mastoid air cells: Visualized mastoid air cells are well aerated. Bones/joints: Unremarkable. No acute fracture. Soft tissues: Unremarkable. IMPRESSION: The previously question trace subarachnoid hemorrhage versus artifact left medial parietal lobe is less obvious on current imaging in his felt to have been due to artifact, likely a cortical vessel. No evidence acute extra-axial fluid collection HPI General Mode of arrival: ambulatory . Date/Time Provider Initiated Documentation: 10/22/22 02:32 . Limitations to Documentation: no limitations . Information obtained by: patient . HPI Narrative: Pt is a 62yo M with a h/o diabetes, tobacco smoker, hypertension, hyperlipidemia, GERD, depression who presents for repeat CT head after left ER AMA last night. Patient reportedly was seen here yesterday after a fall out of a truck approximately 8 feet onto his back. Patient had presented last night mainly for back pain and bilateral leg pain. He had CT imaging of head, cervical spine, thoracic and lumbar spine in addition to chest abdomen and pelvis and an x-ray of his right lower leg all of which were unremarkable except for CT head imaging which noted a possible subarachnoid hemorrhage versus artifact. It had been recommended that he stay for repeat CT head in 6 hours but patient declined and left AMA but stated he would return between 2 and 2:[address] head imaging. Patient states that he wanted to leave because he needed to smoke. Patient states he has had chronic daily headaches occurring in the evening for the past month. He states he usually takes Tylenol with relief. He states he did not take Tylenol today. Patient states he did not hit his head in the fall yesterday morning. Patient states he fell out of the truck and landed on his back and leg. Patient denies any vomiting, chest pain, difficulty breathing or abdominal pain. Related Data Home Medications Medication Instructions Recorded Confirmed albuterol sulfate 90 mcg/actuation 2 puff inhalation Q6H PRN 10/10/20 10/26/22 aerosol inhaler (Proventil HFA) aspirin 81 mg tablet,delayed 81 mg PO DAILY 10/10/20 10/26/22 release (Adult Low Dose Aspirin) atorvastatin 40 mg tablet (Lipitor) 40 mg PO DAILY 10/10/20 10/26/22 betamethasone valerate 0.1 % 1 applic topical DAILY PRN 10/10/20 10/26/22 topical cream hydrochlorothiazide 25 mg tablet 25 mg PO DAILY 10/10/20 10/26/22 metformin 1,000 mg tablet 1,000 mg PO BID 10/10/20 10/26/22 metoprolol tartrate 25 mg tablet 25 mg PO BID 10/10/20 10/26/22 tiotropium bromide 18 mcg capsule 1 cap inhalation DAILY 10/10/20 10/26/22 with inhalation device (Spiriva with HandiHaler) triamcinolone acetonide 0.1 % 1 applic topical DAILY PRN 10/10/20 10/26/22 topical cream secukinumab 150 mg/mL subcutaneous 300 mg subcut Q4W 11/22/20 10/26/22 syringe (Cosentyx 300 mg/2 Syringes () sertraline 50 mg tablet 50 mg PO DAILY 11/22/20 10/26/22 bupropion HCl 150 mg 24 hr tablet, 150 mg PO DAILY 11/28/20 10/26/22 extended release salicylic acid 3 % topical gel 1 applic topical DAILY 02/23/22 10/26/22 (Keralyt) insulin detemir U-100 100 unit/mL 20 unit subcut QHS 03/04/22 10/26/22 subcutaneous solution (Levemir U-100 Insulin) mecobalamin (vitamin B12) 1,000 1,000 mcg PO DAILY 03/04/22 10/26/22 mcg chewable tablet tamsulosin 0.4 mg capsule (Flomax) 0.4 mg PO DAILY #90 caps 05/19/22 10/26/22 lisinopril 40 mg tablet 40 mg PO DAILY 08/05/22 10/26/22 ibuprofen 600 mg tablet 600 mg PO TID 08/21/22 10/26/22 Previous Rx's Medication Instructions Recorded tamsulosin 0.4 mg capsule (Flomax) 0.4 mg PO DAILY #90 caps 05/19/22 Allergies Allergy/AdvReac Type Severity Reaction Status Date / Time ampicillin Allergy Severe rash Verified 10/26/22 09:05 amoxicillin Allergy Mild unknown Verified 10/26/22 09:05 some kind of cillin Allergy Uncoded 10/26/22 09:05 General Stated Complaint: Fall/Non TraumaCriteria KASIA: 4 Review of Systems All systems reviewed & are unremarkable except as noted in HPI and below Constitutional Constitutional: Reports as per HPI, Denies chills, Denies fever(s) and Reports headache(s) Eyes Eyes: Denies blurry vision ENT Ears, Nose, Mouth, and Throat: Denies dizziness, Reports headache(s), Denies sore throat and Denies throat swelling Cardiovascular Cardiovascular: Denies chest pain and Denies dyspnea Respiratory Respiratory: Denies cough and Denies dyspnea Gastrointestinal Gastrointestinal: Denies abdominal pain, Denies diarrhea and Denies vomiting Genitourinary Genitourinary: Denies hematuria and Denies dysuria Musculoskeletal Musculoskeletal: Reports back pain and Denies numbness Comments: b/l leg pain Integumentary/Breasts Skin/Breast: Denies lesions and Denies rash Neurologic Neurologic: Denies dizziness, Reports headache(s), Denies localized weakness and Denies numbness Allergic/Immunologic Allergic/Immunologic: Denies throat swelling PFSH All Active Problems (Updated 10/26/22 @ 09:35 by Carie Giron DO) Lumbar transverse process fracture (Acute) Fall (Acute) Back pain (Acute) Hematoma of lower leg (Acute) H/O CT scan of head (Acute) Chronic headache (Acute) Traumatic hematoma of abdominal wall (Acute) BPH loc w urin obs/LUTS (Acute) Excessive and redundant skin and subcutaneous tissue (Acute) Chronic diarrhea (Acute) Poorly controlled type 2 diabetes mellitus with autonomic neuropathy (Acute) Dyspnea on exertion (Acute) Type 2 diabetes mellitus (Acute) Stage 1 mild COPD by GOLD classification (Acute) Tobacco abuse (Acute) Alcohol abuse, episodic (Acute) Medical History B12 deficiency Depression GERD (gastroesophageal reflux disease) Hx of chronic arthritis back Hx of emphysema Hx of fracture of finger Left hand Hx of psoriasis Hyperlipidemia Hyperplastic colon polyp Hypertension Left hydrocele Osteoarthritis Psoriasis Stasis dermatitis Tubular adenoma of colon Venous insufficiency Weight loss Surgical History History of arthroscopic surgery of elbow Hx of vein stripping left leg Social History Smoking/Tobacco Use Status: Current-Occasional Tobacco Type: cigarettes Smoking packs per day: 1 Smoking cigarettes per day: 20.0 Smoking risk assessment performed?: Yes Alcohol Intake: current Alcohol Intake frequency: 0-2 drinks per day Alcohol type: hard liquor Substance use type: does not use Details: pt. reports smoking a pack a day. Alcohol:t-1, couple of shots Current gender identity: male Do you feel safe at home: Yes Do you feel safe in your relationship?: Yes Exam Const General: cooperative and no acute distress Orientation: alert, awake and oriented x3 HENMT Head: normal to inspection Ears: hearing grossly normal bilaterally, external ears normal and TM's normal bilaterally Face and sinus: normal facial exam Mouth: oral mucosae normal Eyes General: appearance normal, both eyes and all related structures Pupils: PERRL EOM: EOM intact bilaterally Neck Neck: normal visual inspection and No submandibular swelling Lymphatic: no lymphadenopathy noted Chest Chest: normal inspection of the chest and no tenderness Resp Effort & Inspection: normal respiratory effort and able to speak in complete sentences Auscultation: clear to auscultation bilaterally Cardio Rate: regular rate Rhythm: regular rhythm GI Inspection: normal to inspection Palpation: soft, not firm, not rigid and nontender Auscultation: normal bowel sounds Male General Exam: Yes normal external exam Back/Spine/Pelvis Cervical Spine: No cervical spinal tenderness Thoracic/Lumbar Spine: thoracic and lumbar spine normal to inspection, No thoracic spinal tenderness and No lumbar spinal tenderness Pelvis: no pain with anterior-posterior compression Skin General skin exam: no rashes or lesions noted Neuro General: patient alert, patient awake, patient oriented x3, moves all ext remities and no meningeal signs Cranial Nerves: CN's II-XI intact bilaterally Cognition: normal cognition Speech: speech normal Motor: muscle tone normal throughout and strength 5/5 throughout Sensory Exam: no sensory deficits noted Extrem General: full ROM, capillary refill normal, no calf tenderness bilaterally and no edema Other: 1 x 1 cm hematomas noted to anterior mid lower legs bilaterally. Psych Appearance: grossly normal Mental Status: mental status grossly normal Speech and Movement: speech and movement normal Affect: normal affect Course Vital Signs Vital signs: Vital Signs Temperature 97.7 F 10/22/22 02:31 Pulse 86 10/22/22 02:31 Respiratory Rate 18 10/22/22 02:31 Blood Pressure 121/68 10/22/22 02:31 Pulse Oximetry 99 10/22/22 02:31 Temperature 97.7 F 10/22/22 02:31 Temperature Source Tympanic 10/22/22 02:31 Pulse 86 10/22/22 02:31 Respiratory Rate 18 10/22/22 02:31 Blood Pressure 121/68 10/22/22 02:31 Blood Pressure Position Sitting 10/22/22 02:31 Pulse Oximetry 99 10/22/22 02:31 Oxygen Delivery Method Room Air 10/22/22 02:31 Oxygen Flow Rate 0 10/22/22 02:31
[2022-10-22] MEDS: Acetaminophen 500 MG TAB 1000 MG PO (03:13)
--- NOTE | 2022-10-22 05:16 | DI.VRAD_ITS ---
PROCEDURE INFORMATION: Exam: CT Head Without Contrast Exam date and time: 10/22/2022 2:52 AM Age: 62 years old Clinical indication: Other: Fall, possible sah vs artifact on CT head 6 hours ago TECHNIQUE: Imaging protocol: Computed tomography of the head without contrast. Radiation optimization: All CT scans at this facility use at least one of these dose optimization techniques: automated exposure control; mA and/or kV adjustment per patient size (includes targeted exams where dose is matched to clinical indication); or iterative reconstruction. COMPARISON: CT HEAD CERVICAL SPINE WO 10/21/2022 7:38 PM FINDINGS: Brain: The previously question trace subarachnoid hemorrhage versus artifact left medial parietal lobe is less obvious on current imaging in his felt to have been due to artifact, likely a cortical vessel. No evidence acute extra-axial fluid collection Cerebral ventricles: No ventriculomegaly. Paranasal sinuses: Visualized sinuses are unremarkable. No fluid levels. Mastoid air cells: Visualized mastoid air cells are well aerated. Bones/joints: Unremarkable. No acute fracture. Soft tissues: Unremarkable. IMPRESSION: The previously question trace subarachnoid hemorrhage versus artifact left medial parietal lobe is less obvious on current imaging in his felt to have been due to artifact, likely a cortical vessel. No evidence acute extra-axial fluid collection Dictated and Authenticated by: Mindi Morfin MD. Ordering:FAISAL Che MD
--- NOTE | 2022-10-22 08:55 | W.ED.FU ---
Date of service: 10/22/22 Time of Service: 08:56 Follow Up Plan: radiologist advised pt does have transverse process fractures at l1 and l2. Called and talked to the patient and advised of this, he is doing well and advised these do not require any intervention, he was instructed to follow up with his pcp and return precautions discussed including severe worsening pain or weakness
== END 2022-10-22 06:00 | disposition home or self-care (01) ==
PROVIDERS: Emergency Provider Physician Assistant; PCP Family Medicine
DX: R51.9 Headache, unspecified (principal); S32.018A Other fracture of first lumbar vertebra, initial encounter for closed fracture; S32.028A Other fracture of second lumbar vertebra, initial encounter for closed fracture; W18.39XA Other fall on same level, initial encounter
CPT/HCPCS: 99284; 70450; 99283

== ENCOUNTER 2022-11-17 09:09 | Outpatient (CLI) | payer MEDICAID, SELFPAY ==
--- NOTE | 2022-11-17 08:30 | DI.RAD_ITS ---
Exam(s) XR LUMBAR SPINE COMP W FLEX/EX EXAM: XR LUMBAR SPINE COMP W FLEX/EX CLINICAL HISTORY: L1/L2 TP Fx secondary to fall,s32.009a. TECHNIQUE: 2D digital imaging was performed. COMPARISON: CT CT THORACIC LUMBAR SPINE REC from 10/21/2022 FINDINGS: Seven views: There is no evidence of compression fracture or listhesis. Mild disc space narrowing at upper 3 leve ls with relative disc height preservation L4-5 and L5-S1 levels. Mild facet arthropathy. No osseous lesions. Bone density normal. Sacroiliac joints appear unremarkable. IMPRESSION: Findings as above but no fractures. DATA REPOSITORY: RADIATION DOSE DELIVERED:
== END 2022-11-17 09:29 ==
LOC: DI 09:09
PROVIDERS: PCP Family Medicine; Visit Provider Surgery
DX: M54.59 Other low back pain (principal); M51.36 Other intervertebral disc degeneration, lumbar region; M47.816 Spondylosis without myelopathy or radiculopathy, lumbar region
CPT/HCPCS: 72114

== ENCOUNTER 2022-12-24 00:46 | Outpatient (CLI) | payer MEDICAID, SELFPAY ==
--- NOTE | 2022-12-24 | DI.CTLCSR_ITS ---
Exam(s) CT CHEST LUNG CANCER SCREEN EXAM: CT CHEST LUNG CANCER SCREEN CLINICAL HISTORY: TOBACCO ABUSE, ANNUAL CT, LUNG CA SCREENING, F17.200 TECHNIQUE: Imaging Protocol: Axial computed tomography images with coronal and sagittal reformatted images were created and reviewed. Low dose screening protocol. COMPARISON: CT CT CHEST/ABD/PEL W from 10/21/2022 FINDINGS: Tracheobronchial tree: No bronchiectasis or mucus plugging.. Mediastinum and Jacquelin: No dominant adenopathy or fluid collection. Pulmonary parenchyma: No consolidation or dominant measurable mass. Mild emphysematous changes. Lung Nodules: None. Pleura: No effusion. No pneumothorax. Heart: The heart is not dilated. Jolb-ad-gnavtnuv coronary artery calcifications are seen. Aorta: Thoracic aorta non-dilated. Mild atherosclerotic changes. Upper abdomen: Unremarkable. Bones: Degenerative changes with prominent endplate osteophytes. Soft Tissues: Unremarkable. IMPRESSION: No suspicious pulmonary nodules. Category 1 Lung RADS Cat 1 - Negative: No nodules and definitely benign nodules Lung-RADS 1.0 CATEGORIES: Category 0 - Prior chest CT exam(s) being located for comparison. Category 1 - Annual screening in 12 months. No nodules or definitely benign nodules. Category 2 - Annual screening in 12 months. Benign appearance. Nodules with low likelihood of becomin g active cancer. Category 3 - 6-month follow-up. Probably benign. Short-term follow-up suggested. Nodules with low lik elihood of becoming active cancer. Category 4A - 3-month follow-up and CT/PET if >8 mm in size. Suspicious finding. Findings which requi re additional testing. Category 4B - Findings which require additional testing and tissue sampling. Category 4X - Category 3 or 4 nodules with additional features or imaging findings that increases the suspicion of malignancy. Modifier S- Potentially clinically significant findings (non lung cancer) RADIATION DOSE DELIVERED: 84.09mGy.cm Total DLP DATA REPOSITORY: All CT scans at this facility are submitted to the National Radiology Data Registry (NRDR) Dose Index Registry (DIR) with the [employer] ([employer]). RADIATION OPTIMIZATION: All CT scans at this facility use at least one of these dose optimization te chniques: automated exposure control; mA and/or kV adjustment per patient size (includes targeted exa ms where dose is matched to clinical indication); or iterative reconstruction.
== END 2022-12-24 01:06 ==
LOC: DI 00:47
PROVIDERS: PCP Family Medicine; Visit Provider Family Medicine
DX: Z12.2 Encounter for screening for malignant neoplasm of respiratory organs (principal); F17.210 Nicotine dependence, cigarettes, uncomplicated; J43.8 Other emphysema
CPT/HCPCS: 71271

== ENCOUNTER 2023-08-06 09:05 | Outpatient (REF) | payer MEDICAID, SELFPAY ==
[2023-08-06 13:57] LABS: COMMENT (LAB VIEW ONLY) 120.75 mg/dL
== END 2023-08-06 09:06 | disposition home or self-care (01) ==
LOC: NCHCN 09:05
PROVIDERS: PCP Family Medicine; Visit Provider Family Medicine
DX: E11.9 Type 2 diabetes mellitus without complications (principal)
CPT/HCPCS: 82043; 82570

== ENCOUNTER 2023-11-11 14:40 | Outpatient (REF) | payer MEDICAID, SELFPAY ==
[2023-11-11 16:18] LABS: HCT 48.3 % (40.0-50.0); HGB 16.4 g/dL (13.5-17.5); MCH 32.2 pg (27.0-33.0); MCV 95 fL (80-95); MPV 11.6 fL (8.0-11.0); Platelet Count 127 10^3/uL (130-400); RBC 5.09 10^6/uL (4.36-5.78); RDW 12.8 % (11.8-14.1); RDW-SD 45.1 fL; WBC 8.14 10^3/uL (4.4-10.8)
[2023-11-11 16:41] LABS: COMMENT (LAB VIEW ONLY) 43.45 mg/dL; Microalb ug/mg Crea 10.1 ug/mg Cr
[2023-11-11 17:26] LABS: ALT 29 U/L (16-63); AST 16 U/L (15-37); Alkaline Phosphatase 69 U/L (46-116); Anion Gap 7.6 mmol/L (3-11); BUN 23 mg/dL (7-18); Bilirubin, Total 0.4 mg/dL (0.2-1.0); CO2 31.4 mmol/L (21.0-32.0); CREATININE 1.3 mg/dL (0.70-1.30); Calcium 9.6 mg/dL (8.5-10.1); Calculated LDL 59 mg/dL (<100); Chloride 102 mmol/L (98-107); Cholesterol 116 mg/dL (<200); Estimated GFR 61.73 (mL/min/1.73m2); Glucose 164 mg/dL (74-106); HDL Cholesterol 44 mg/dL (40-60); Sodium 141 mmol/L (136-145); Total Protein 6.8 g/dL (6.4-8.2); Triglyceride 69 mg/dL (<150); Vitamin B12 994 pg/mL (193-986)
[2023-11-11 17:34] LABS: Hemoglobin A1C 7.7 % (<5.7)
== END 2023-11-11 14:41 | disposition home or self-care (01) ==
LOC: NCHCN 14:40
PROVIDERS: PCP Family Medicine; Visit Provider Family Medicine
DX: E11.9 Type 2 diabetes mellitus without complications (principal); E53.9 Vitamin B deficiency, unspecified; E78.5 Hyperlipidemia, unspecified
CPT/HCPCS: 80053; 80061; 85027; 82043; 82570; 82607; 83036

== ENCOUNTER → 2023-12-28 02:02 | Outpatient (CLI) | payer MEDICAID, SELFPAY ==
--- NOTE | 2023-12-28 | DI.CTLCSR_ITS ---
Exam(s) CT CHEST LUNG CANCER SCREEN EXAM: CT CHEST LUNG CANCER SCREEN CLINICAL HISTORY: NICOTINE DEPENDENCE F17.210 SCREENING FOR LUNG CANCER TECHNIQUE: Imaging Protocol: Axial computed tomography images with coronal and sagittal reformatted images were created and reviewed. Low dose screening protocol. COMPARISON: CT CT CHEST LUNG CANCER SCREEN from 12/24/2022 FINDINGS: Tracheobronchial tree: No bronchiectasis or mucus plugging.. Mediastinum and Jacquelin: No dominant adenopathy or fluid collection. Pulmonary parenchyma: No consolidation or dominant measurable mass. Mild to moderate emphysematous ch anges. Mild basilar fibrotic changes. Lung Nodules: None. Pleura: No effusion. No pneumothorax. Heart: The heart is not dilated. No coronary artery calcifications are seen. Aorta: Thoracic aorta non-dilated.Mild atherosclerotic changes. Upper abdomen: Unremarkable. Bones: There changes in the thoracic spine. Soft Tissues: Unremarkable. IMPRESSION: No suspicious pulmonary nodules. Lung RADS Cat 1 - Negative: No nodules and definitely benign nodules Lung-RADS 1.0 CATEGORIES: Category 0 - Prior chest CT exam(s) being located for comparison. Category 1 - Annual screening in 12 months. No nodules or definitely benign nodules. Category 2 - Annual screening in 12 months. Benign appearance. Nodules with low likelihood of becomin g active cancer. Category 3 - 6-month follow-up. Probably benign. Short-term follow-up suggested. Nodules with low lik elihood of becoming active cancer. Category 4A - 3-month follow-up and CT/PET if >8 mm in size. Suspicious finding. Findings which requi re additional testing. Category 4B - Findings which require additional testing and tissue sampling. Category 4X - Category 3 or 4 nodules with additional features or imaging findings that increases the suspicion of malignancy. Modifier S- Potentially clinically significant findings (non lung cancer) RADIATION DOSE DELIVERED: 74.38mGy.cm Total DLP DATA REPOSITORY: All CT scans at this facility are submitted to the National Radiology Data Registry (NRDR) Dose Index Registry (DIR) with the [employer] ([employer]). RADIATION OPTIMIZATION: All CT scans at this facility use at least one of these dose optimization te chniques: automated exposure control; mA and/or kV adjustment per patient size (includes targeted exa ms where dose is matched to clinical indication); or iterative reconstruction.
== END ==
PROVIDERS: PCP Family Medicine; Visit Provider Family Medicine
DX: Z12.2 Encounter for screening for malignant neoplasm of respiratory organs (principal); F17.210 Nicotine dependence, cigarettes, uncomplicated
CPT/HCPCS: 71271

== ENCOUNTER 2024-03-06 09:48 | Outpatient (REF) | payer MEDICAID, SELFPAY ==
[2024-03-06 16:21] LABS: Hemoglobin A1C 7.8 % (<5.7)
== END 2024-03-06 09:49 | disposition home or self-care (01) ==
LOC: NCHCN 09:48
PROVIDERS: PCP Family Medicine; Visit Provider Family Medicine
DX: E11.9 Type 2 diabetes mellitus without complications (principal)
CPT/HCPCS: 83036

== ENCOUNTER 2024-12-28 00:30 | Outpatient (CLI) | payer MEDICAID, SELFPAY ==
--- NOTE | 2024-12-28 | DI.CTLCSR_ITS ---
Exam(s) CT CHEST LUNG CANCER SCREEN EXAM: CT CHEST LUNG CANCER SCREEN CLINICAL HISTORY: Ex-smoker, Z87.891-personal h/o nicotine dependence; screening. TECHNIQUE: Imaging Protocol: Low Dose Technique CONTRAST MATERIAL: None COMPARISON: CT CT CHEST/ABD/PEL W from 10/21/[address] CHEST LUNG CANCER SCREEN from 12/28/2023 FINDINGS: CHEST: LUNGS: Solitary small benign fissure related nodule in the right lung is unchanged from the prior krishan dy of 1 year ago. There are no new ominous pulmonary nodules. There are no confluent infiltrates. N o pleural effusions. MEDIASTINUM: There is no obvious hilar nor mediastinal adenopathy. CARDIAC: Heart size is normal. There is no pericardial effusion.Caliber of the thoracic aorta is wit hin normal limits. OTHER: Exophytic cyst off the superior pole the right kidney again noted. Only a small part of the k idney is included in the field of view of this chest study. OSSEOUS: No significant osseous lesions.No fractures.. IMPRESSION: 1. Stable fissure related benign-appearing small right lung nodule. No new nodules nor other new pul monary findings 2. No pleural effusions nor intrathoracic adenopathy. 3. Lung RADS Cat 1 - Negative: No nodules and definitely benign nodules Lung-RADS 1.0 CATEGORIES: Category 0 - Prior chest CT exam(s) being located for comparison. Category 1 - Annual screening in 12 months. No nodules or definitely benign nodules. Category 2 - Annual screening in 12 months. Benign appearance. Nodules with low likelihood of becomin g active cancer. Category 3 - 6-month follow-up. Probably benign. Short-term follow-up suggested. Nodules with low lik elihood of becoming active cancer. Category 4A - 3-month follow-up and CT/PET if >8 mm in size. Suspicious finding. Findings which requi re additional testing. Category 4B - Findings which require additional testing and tissue sampling. Category 4X - Category 3 or 4 nodules with additional features or imaging findings that increases the suspicion of malignancy. Modifier S- Potentially clinically significant findings (non lung cancer) RADIATION DOSE DELIVERED: 56.47mGy.cm Total DLP DATA REPOSITORY: All CT scans at this facility are submitted to the National Radiology Data Registry (NRDR) Dose Index Registry (DIR) with the [employer] ([employer]). RADIATION OPTIMIZATION: All CT scans at this facility use at least one of these dose optimization te chniques: automated exposure control; mA and/or kV adjustment per patient size (includes targeted exa ms where dose is matched to clinical indication); or iterative reconstruction.
== END 2024-12-28 00:50 ==
LOC: DI 00:30
PROVIDERS: PCP Family Medicine; Visit Provider Family Medicine
DX: Z87.891 Personal history of nicotine dependence (principal); Z12.2 Encounter for screening for malignant neoplasm of respiratory organs
CPT/HCPCS: 71271